=== PATIENT | female | born 1945 | race Caucasian/White ===

== ENCOUNTER → 2019-06-13 17:27 | Outpatient (CLI) | payer MEDICARE, OTHER, SELFPAY ==
--- NOTE | 2019-06-15 13:28 | DI.MRI.S_ITS ---
PROCEDURE: MR CERVICAL SPINE WO CON INDICATIONS: CERVICAL STENOSIS TECHNIQUE: Noncontrast sagittal T1 spin echo and T2 fast spin echo, sagittal STIR, foraminal oblique sagittal T2 fast spin echo, and axial gradient echo or T2 fast spin echo through the cervical spine. COMPARISON: None. FINDINGS: Image quality: Excellent. Alignment and Curvature: Straightening of the normal lordotic curvature. Bone Marrow: No fracture. Multilevel degenerative endplate sclerosis and spurring. Diffuse facet arthropathy. Mid to lower cervical spondylosis most pronounced at C5-T1. Spinal Cord: Visualized spinal cord has normal size and signal. No cerebellar tonsillar herniation. Paraspinous Soft Tissues: No paravertebral masses. Prevertebral soft tissues are normal in thickness. C2-C3: No central canal stenosis. Mild right foraminal narrowing with slight nerve root compression. Moderate left foraminal stenosis with nerve root compression. C3-C4: Minimal central canal narrowing. Severe right foraminal stenosis with nerve root compression. Moderate to severe left foraminal stenosis with nerve root compression C4-C5: No definite central canal stenosis. Moderate to severe right foraminal stenosis with nerve root compression. Moderate to severe left foraminal stenosis with nerve root compression C5-C6: Mild-moderate central canal narrowing. Mild bilateral foraminal stenosis. C6-C7: Left paracentral disc osteophyte complex and uncovertebral arthropathy with moderate left-sided central canal narrowing. Moderate right foraminal stenosis with nerve root compression. Moderate left foraminal stenosis with slight nerve root compression image /. C7-T1: Mild central canal narrowing due to uncovertebral arthropathy and right paracentral disc osteophyte complex. Moderate right foraminal narrowing with slight nerve root compression. Moderate left foraminal narrowing with nerve root compression. IMPRESSION: Multilevel mid-lower cervical spondylosis with facet arthropathy Diffuse bilateral foraminal stenoses as detailed above by spinal level Straightening of the normal lordotic curvature. Dictated by: Jesus Johnson M.D. on 06/17/2019 at 8:37 Approved by: Jesus Johnson M.D. on 06/17/2019 at 8:58
--- NOTE | 2019-06-15 13:28 | DI.MRI.S_ITS ---
PROCEDURE: MR HEAD/BRAIN WO CON INDICATIONS: CERVICAL STENOSIS TECHNIQUE: Non-contrast axial T1 spin echo, axial T2 fast spin echo, sagittal and axial FLAIR, coronal T2 fast spin echo, axial gradient echo, axial diffusion and ADC through the brain. COMPARISON: None. FINDINGS: Image quality: Excellent. CSF spaces: Ventricles appear symmetric in size and shape. Basal cisterns are patent. No extra-axial fluid collections. Brain: No intracranial bleeds or mass effects. There is mild cerebral volume loss for age. There are mild periventricular and deep white matter chronic small vessel ischemic changes. Brainstem appears normal. Diffusion-weighted images show no acute ischemic insults. No chronic ischemic insults. Normal intravascular flow voids are present. Skull and face: Calvarial bone marrow is normal in signal. Orbits are normal. Sinuses: Sinuses are clear. Trace fluid noted in the dependent portion of the right mastoid air cells. IMPRESSION: 1. No acute intracranial disease process. 2. No abnormal intracranial mass or mass effect. 3. No areas of acute or chronic infarction. 3. Mild, diffuse cerebral volume loss. 4. Mild periventricular and subcortical white matter chronic microvascular ischemic change. Dictated by: Layla Kirby MD, PhD on 06/17/2019 at 10:54 Approved by: Layla Kirby MD, PhD on 06/17/2019 at 12:14
== END ==
PROVIDERS: Family Provider Orthopaedic Surgery; PCP Family Medicine; Visit Provider Physical Medicine & Rehabilitation
DX: G72.9 Myopathy, unspecified (principal); M48.02 Spinal stenosis, cervical region; Z53.9 Procedure and treatment not carried out, unspecified reason

== ENCOUNTER → 2019-06-15 13:23 | Outpatient (CLI) | payer MEDICARE, OTHER, SELFPAY | PROVIDERS: Family Provider Orthopaedic Surgery; PCP Family Medicine; Visit Provider Physical Medicine & Rehabilitation | DX: M54.2 Cervicalgia (principal); R51 Headache; M47.812 Spondylosis without myelopathy or radiculopathy, cervical region; M48.02 Spinal stenosis, cervical region | CPT/HCPCS: 70551; 72141 ==

== ENCOUNTER → 2019-12-12 12:12 | Outpatient (CLI) | payer MEDICARE, OTHER, SELFPAY ==
--- NOTE | 2019-12-12 | DI.MRI.S_ITS ---
PROCEDURE: MR LUMBAR SPINE WO CON INDICATIONS: Radiculopathy, lumbar region TECHNIQUE: Noncontrast sagittal T1 spin echo and T2 fast echo, sagittal STIR, axial T1 and T2 fast spin echo through the lumbar spine. In cases with scoliosis, additional coronal T2 fast spin echo may be performed. COMPARISON: [facility], , SPINE 1 VIEW ANY LEVEL, 12/13/2011, 14:14. [facility], , MRI L-SPINE W/O CONTRAST, 01/05/2011, 11:11. FINDINGS: Image quality: Excellent. Alignment and Curvature: There is normal bony alignment. Bone Marrow: Marrow is of normal overall signal. No acute vertebral body compression fractures. Spinal Cord: Conus medullaris terminates at the L2 level. Visualized cord demonstrates normal signal and size. Paraspinous Soft Tissues: No paravertebral masses. T11-T12: No canal stenosis or foraminal stenosis. T12-L1: No canal stenosis or foraminal stenosis. L1-L2: Minimal disc bulge. No canal stenosis or foraminal stenosis. L2-L3: Mild disc bulge. Mild facet hypertrophy. Borderline at canal stenosis. Mild bilateral foraminal stenosis. L3-L4: Remote right hemilaminectomy. Moderate disc bulge. Left facet and ligament hypertrophy. Moderate bilateral foraminal narrowing with flattening deformity on the exiting bilateral L3 nerve roots. Far left lateral disc protrusion impinges on the left L3 nerve root far laterally. L4-L5: Remote right hemilaminectomy. Broad-based moderate left paracentral disc protrusion, with impingement on the left L5 nerve root in the left lateral recess. Left facet hypertrophy. Moderate bilateral foraminal narrowing with flattening deformity of the exiting bilateral L4 nerve roots. L5-S1: Remote right hemilaminectomy. Moderate diffuse disc bulge. Bilateral facet hypertrophy. No significant canal stenosis. Moderate bilateral foraminal narrowing with flattening deformity of the exiting bilateral L5 nerve roots. IMPRESSION: 1. Remote multilevel right hemilaminectomy. 2. At L3-L4, there is moderate bilateral foraminal narrowing. There is a far left lateral disc protrusion impinging on the left L3 nerve root far laterally. 3. At L4-L5, there is a broad-based moderate left paracentral disc protrusion which impinges on the left L5 nerve root in the left lateral recess. There is moderate bilateral foraminal narrowing. 4. At L5-S1, there is moderate bilateral foraminal narrowing. 5. Multilevel facet hypertrophy. Dictated by: Andrew Ware M.D. on 12/12/2019 at 17:08 Approved by: Andrew Ware M.D. on 12/12/2019 at 17:17
== END ==
PROVIDERS: Family Provider Orthopaedic Surgery; PCP Family Medicine; Referring Provider Orthopaedic Surgery; Visit Provider Orthopaedic Surgery
DX: M51.16 Intervertebral disc disorders with radiculopathy, lumbar region (principal); M51.17 Intervertebral disc disorders with radiculopathy, lumbosacral region; M48.061 Spinal stenosis, lumbar region without neurogenic claudication; M48.07 Spinal stenosis, lumbosacral region
CPT/HCPCS: 72148

== ENCOUNTER 2020-12-04 11:09 | Emergency (ER) | payer MEDICARE, SELFPAY ==
[2020-12-04] VITALS (12 sets, daily range): BP systolic 136–178; BP diastolic 58–73; PULSE 48–69; RESP 13–34; TEMP 36.3; O2SAT 96–99; BMI 23.8
--- NOTE | 2020-12-04 11:19 | DI.RAD.S_ITS ---
PROCEDURE: XR CHEST 1V INDICATIONS: chest pain TECHNIQUE: One view of the chest was acquired. COMPARISON: None. FINDINGS: Surgical changes and devices: None. Lungs and pleura: Lungs are clear. No pleural effusions or pneumothorax. Mediastinum: Mediastinal contours appear normal. Heart size is normal. Bones and chest wall: Bilateral shoulder joint degeneration. IMPRESSION: No acute disease. Dictated by: Jesus Johnson M.D. on 12/04/2020 at 11:48 Approved by: Jesus Johnson M.D. on 12/04/2020 at 12:03
--- NOTE | 2020-12-04 11:19 | DI.CT.S_ITS ---
PROCEDURE: CT HEAD/BRAIN WO CON INDICATIONS: multiple falls over past months, 4 in past 2 weeks. TECHNIQUE: Noncontrast 4.5 mm thick angled axial sections acquired from the foramen magnum to the vertex, with coronal and sagittal reformats. For radiation dose reduction, the following was used: automated exposure control, adjustment of mA and/or kV according to patient size. COMPARISON: None. FINDINGS: Image quality: Excellent. CSF spaces: Basal cisterns are patent. No extra-axial fluid collections. The ventricles are symmetric in size and shape. Brain: No intracranial bleeds or masses. There is cerebral volume loss for age, with resultant ventricular and sulcal prominence. There are periventricular and deep white matter chronic small vessel ischemic changes. There is intracranial internal carotid artery atherosclerosis. Skull and face: Calvarium and visualized facial bones appear intact, without suspicious lesions. Sinuses: Visualized sinuses and mastoids are clear. IMPRESSION: No acute intracranial process. Dictated by: Jesus Johnson M.D. on 12/04/2020 at 12:03 Approved by: Jesus Johnson M.D. on 12/04/2020 at 12:05
[2020-12-04 12:00] LABS: Add Manual Diff / Slide Review NO; Basophils Absolute Auto 100 /uL (0-100); Basophils Percent Auto 1.4 % (0-2); Eosinophils Absolute Auto 200 /uL (0-450); Hematocrit 37.8 % (36-46); Hemoglobin 12.6 g/dL (12.0-16.0); Lymphocytes Absolute Auto 2800 /uL (1100-4500); Mean Corpuscular HGB Conc 33.4 % (30-36); Mean Corpuscular Hemoglobin 31.1 PG (26-34); Mean Corpuscular Volume 93.2 fL (80-100); Monocytes Absolute Auto 800 /uL (0-900); Monocytes Percent Auto 7.8 % (3-14); Neutrophils Absolute Auto 6200 /uL (1500-7000); Neutrophils Percent Auto 60.8 % (50-75); Platelet Count 259 X10^3/uL (150-400); Red Blood Cell Count 4.05 X10^6/uL (4.0-5.2); Red Cell Distribution Width 13.2 % (11.6-14.8); White Blood Cell Count 10.2 X10^3/uL (4.5-11.0)
[2020-12-04 12:21] LABS: Alanine Aminotransferase 25 IU/L (<35); Albumin 4.3 g/dL (3.5-5.0); Albumin Globulin Ratio 1.3 (1.0-2.8); Alkaline Phosphatase 45 U/L (38-126); Aspartate Aminotransferase 76 IU/L (14-36); BUN Creatinine Ratio 17.1 (6-22); Bilirubin Total 0.7 mg/dL (0.2-1.3); Blood Urea Nitrogen 30 mg/dL (7-17); Calcium 9.5 mg/dL (8.4-10.2); Carbon Dioxide 24 mmol/L (22-32); Chloride 103 mmol/L (98-107); Creatine Kinase 47 U/L (30-135); Estimated Glomerular Filt Rate 28.3 mL/min (>60); Globulin 3.2 g/dL (1.7-4.1); Glucose 108 mg/dL (80-110); HEMOLYSIS 32 (0-50); Lipase 282 U/L (23-300); Magnesium 2.2 mg/dL (1.6-2.3); Potassium 4.5 mmol/L (3.4-5.1); Sodium 137 mmol/L (137-145); Total Protein 7.5 g/dL (6.3-8.2)
[2020-12-04 12:33] LABS: NT-proBNP (BNP-Adult 18+) 63 pg/mL (<450); Troponin I < 0.012 ng/mL (0.01-0.034)
[2020-12-04 12:52] LABS: TSH w/ Reflex to FT4 < 0.02 uIU/mL (0.47-4.68)
[2020-12-04 13:19] LABS: Free T4, Direct Thyroxine 1.96 ng/dL (0.78-2.19)
--- NOTE | 2020-12-04 14:03 | ED_ITS ---
HPI - General Adult General Chief complaint: Syncope Stated complaint: has been falling a lot, hit face Time Seen by Provider: 12/04/20 11:36 Source: patient Mode of arrival: Ambulatory Limitations: no limitations History of Present Illness HPI narrative: 75-year-old woman with a history of a stable angina, hyperte nsion, hyperlipidemia, anxiety and depression, diabetes and hypothyroidism presents with frequent falls worse since July of this year. She does note that symptoms have progressed even in the last 2 weeks. She fell last night and hit the left side of her face and lip but did not suffer additional injuries. She describes the falls as coming out of the blue, associated with her knees simply getting weak and then she falls down. She and her both note that as she has gotten a bit older and weaker that her balance and ability to compensate for any stumble or early fall has deteriorated significantly. When she begins to fall she is unable to compensate at all. She does have both a cane and walker but it does not seem that she is using these frequently. Related Data Home Medications Medication Instructions Recorded Confirmed fluoxetine 40 mg PO QDAY #0 12/13/11 12/04/20 omeprazole 20 mg PO BID@0600,2100 #0 12/13/11 12/04/20 acetaminophen 650 mg 650 mg PO TID tab 06/05/19 12/04/20 tablet,extended release atorvastatin 20 mg tablet 20 mg PO DAILY 06/05/19 12/04/20 fenofibrate 160 mg tablet 160 mg PO DAILY 06/05/19 12/04/20 insulin human U-100 NPH-regulr 40 unit SUBCUT BEDTIME ml 06/05/19 12/04/20 70-30 mix 100 unit/mL subcutaneous susp amlodipine 5 mg tablet 2.5 mg PO BID tab 08/14/19 12/04/20 biotin 10,000 mcg PO DAILY 12/04/20 12/04/20 bupropion HCl 150 mg PO DAILY 12/04/20 12/04/20 fexofenadine [Allergy Relief 180 mg PO DAILY 12/04/20 12/04/20 (fexofenadine)] glucosamine sulfate [Glucosamine] 1,500 mg PO DAILY 12/04/20 12/04/20 isosorbide dinitrate 10 mg PO BID 12/04/20 12/04/20 levothyroxine 50 mcg PO QAM 12/04/20 12/04/20 magnesium 15 tab PO DAILY 12/04/20 12/04/20 metoprolol tartrate 50 mg PO BID 12/04/20 12/04/20 Allergies Allergy/AdvReac Type Severity Reaction Status Date / Time oxycodone AdvReac Severe Hallucinati Verified 12/04/20 12:14 ng cinnamon AdvReac acid Verified 12/04/20 11:16 reflex, GI upset sulfamethoxazole AdvReac GI upset Verified 12/04/20 11:16 [From Bactrim] trimethoprim [From Bactrim] AdvReac GI upset Verified 12/04/20 11:16 mushrooms Allergy swollen Uncoded 08/14/19 11:25 and watery eyes raw onion AdvReac GI upset Uncoded 08/14/19 11:25 Review of Systems Review of Systems Narrative: Pertinent positive and negative findings as per HPI Remainder of review of systems is otherwise unremarkable for Constitutional: Fevers, chills, ENT: No sore throat, neck pain, ear pain CV: Chest pain, palpitations, Respiratory: Cough, wheeze, dyspnea GI: Nausea, vomiting, diarrhea, : Dysuria, hematuria, Patient History Medical History Cervical stenosis of spinal canal Depression with anxiety Diabetes Falls frequently Herniated nucleus pulposus with myelopathy, cervical Hyperlipidemia Hypertension Myopathy Stable angina Surgical History History of ankle surgery History of appendectomy History of back surgery History of hysterectomy Family History Father Diabetes mellitus Liver cancer Mother Diabetes mellitus COPD (chronic obstructive pulmonary disease) Asthma Family/Other Cancer Family/Other Heart problem Social History marital status: Smoking Status: Former smoker Smoking Status: Former smoker alcohol intake frequency: holidays/special occasions only Substance Use Type: does not use Exam Narrative Exam Narrative: General: frail but in no acute distress. Able to give a co mplete and coherent history. HEENT: Moist mucous membranes, normal sclera with reactive pupils, large ecchymosis around the left eye and left upper lip from 1 of her recent falls. Neck: No JVD, supple, No midline cervical tenderness Respiratory: Lungs are clear to auscultation, no wheezing no rales no rhonchi. Full and symmetrical air movement Cardiac: Regular rate and rhythm no murmurs no bruits Abdomen: Soft, nontender, good bowel tones, no flank pain Skin: Warm and dry, multiple small bruises in various stages of healing from her very thin skin and recent falls. Neurologic: Grossly neurologically intact with no obvious asymmetries or abnormalities Extremities: Old contusion to the medial aspect of her left hand for recent fall. Old bruise on her right flank from a more distant fall. Abrasion on the left anterior courtney from an old fall well perfused Psych: Cooperative, appropriate insight and affect Initial Vital Signs Initial Vital Signs: Vital Signs Temperature 97.3 F L 12/04/20 11:12 Pulse Rate 51 L 12/04/20 11:12 Respiratory Rate 14 12/04/20 11:12 Blood Pressure 178/73 H 12/04/20 11:12 Pulse Oximetry 99 12/04/20 11:12 Course Orders Ordered: ED Orders 12/04/20 11:19 CT head/brain wo con Stat XR chest 1V Stat EKG-12 Lead Stat 12/04/20 11:50 Complete Blood Count AUTO DIFF Stat Comprehensive Metabolic Panel Stat Free T4, Direct Thyroxine Stat Lipase Stat Magnesium Stat NT-proBNP (BNP-Adult 18+) Stat TSH w/ Reflex to FT4 Stat Troponin & CK Cardiac Panel Stat Vital Signs Vital signs: Vital Signs - 8 hr 12/04/20 11:12 12/04/20 11:21 12/04/20 11:30 Temperature 97.3 F L Pulse Rate 51 L 69 50 L Pulse Rate [Orthostatic Lying] Pulse Rate [Orthostatic Sitting] Pulse Rate [Orthostatic Standing] Respiratory Rate 14 20 22 Blood Pressure 178/73 H Blood Pressure [Orthostatic Lying] Blood Pressure [Orthostatic Sitting] Blood Pressure [Orthostatic Standing] Pulse Oximetry 99 12/04/20 11:48 12/04/20 11:50 12/04/20 11:52 Temperature Pulse Rate 51 L 51 L 50 L Pulse Rate [Orthostatic Lying] 53 L Pulse Rate [Orthostatic Sitting] 51 L Pulse Rate [Orthostatic Standing] 50 L Respiratory Rate 13 23 16 Blood Pressure 151/67 H 140/63 136/58 L Blood Pressure [Orthostatic Lying] 151/67 H Blood Pressure [Orthostatic Sitting] 140/63 Blood Pressure [Orthostatic Standing] 136/58 L Pulse Oximetry 98 97 97 12/04/20 12:00 12/04/20 12:30 12/04/20 13:00 Temperature Pulse Rate 50 L 48 L 49 L Pulse Rate [Orthostatic Lying] Pulse Rate [Orthostatic Sitting] Pulse Rate [Orthostatic Standing] Respiratory Rate 22 25 H 29 H Blood Pressure Blood Pressure [Orthostatic Lying] Blood Pressure [Orthostatic Sitting] Blood Pressure [Orthostatic Standing] Pulse Oximetry 99 98 97 12/04/20 13:30 12/04/20 13:57 12/04/20 14:00 Temperature Pulse Rate 48 L 50 L 48 L Pulse Rate [Orthostatic Lying] Pulse Rate [Orthostatic Sitting] Pulse Rate [Orthostatic Standing] Respiratory Rate 34 H 19 22 Blood Pressure 143/63 H 141/63 H Blood Pressure [Orthostatic Lying] Blood Pressure [Orthostatic Sitting] Blood Pressure [Orthostatic Standing] Pulse Oximetry 96 98 98 Medical Decision Making Medical Records Medical records reviewed: Yes I reviewed the patient's medical records. Lab Data Lab results reviewed: Yes I reviewed the patient's lab results. Result diagrams: 12/04/20 11:50 12/04/20 11:50 Labs: Lab Results 12/04/20 12/04/20 12/04/20 Range/Units 11:50 11:50 11:50 WBC 10.2 (4.5-11.0) X10^3/uL RBC 4.05 (4.0-5.2) X10^6/uL Hgb 12.6 (12.0-16.0) g/dL Hct 37.8 (36-46) % MCV 93.2 (80-100) fL MCH 31.1 (26-34) PG MCHC 33.4 (30-36) % RDW 13.2 (11.6-14.8) % Plt Count 259 (150-400) X10^3/uL Neut % (Auto) 60.8 (50-75) % Lymph % (Auto) 28.0 (25-40) % [place] % (Auto) 7.8 (3-14) % Eos % (Auto) 2.0 (2-4) % Baso % (Auto) 1.4 (0-2) % Neut # (Auto) 6200 (8422-5452) /uL Lymph # (Auto) 2800 (9003-2916) /uL [place] # (Auto) 800 (0-900) /uL Eos # (Auto) 200 (0-450) /uL Baso # (Auto) 100 (0-100) /uL Sodium 137 (137-145) mmol/L Potassium 4.5 (3.4-5.1) mmol/L Chloride 103 (98-107) mmol/L Carbon Dioxide 24 (22-32) mmol/L BUN 30 H (7-17) mg/dL Creatinine 1.75 H (0.52-1.04) mg/dL Estimated GFR 28.3 L (>60) mL/min BUN/Creatinine Ratio 17.1 (6-22) Glucose 108 (80-110) mg/dL Calcium 9.5 (8.4-10.2) mg/dL Magnesium 2.2 (1.6-2.3) mg/dL Total Bilirubin 0.7 (0.2-1.3) mg/dL AST 76 H (14-36) IU/L ALT 25 (<35) IU/L Alkaline Phosphatase 45 (38-126) U/L Total Creatine Kinase 47 (30-135) U/L CK-MB (CK-2) TNP CK-MB (CK-2) Rel Index TNP Troponin I < 0.012 (0.01-0.034) ng/mL NT-Pro-B Natriuret Pep 63 (<450) pg/mL Total Protein 7.5 (6.3-8.2) g/dL Albumin 4.3 (3.5-5.0) g/dL Globulin 3.2 (1.7-4.1) g/dL Albumin/Globulin Ratio 1.3 (1.0-2.8) Lipase 282 (23-300) U/L TSH < 0.02 L (0.47-4.68) uIU/mL Free T4 1.96 (0.78-2.19) ng/dL Imaging Data Chest x-ray: Radiologist's Impression: FINDINGS: Surgical changes and devices: None. Lungs and pleura: Lungs are clear. No pleural effusions or pneumothorax. Mediastinum: Mediastinal contours appear normal. Heart size is normal. Bones and chest wall: Bilateral shoulder joint degeneration. IMPRESSION: No acute disease. Dictated by: Jesus Johnson M.D. on 12/04/2020 at 11:48 CT scan - head: Radiologist's Impression: FINDINGS: Image quality: Excellent. CSF spaces: Basal cisterns are patent. No extra-axial fluid collections. The ventricles are symmetric in size and shape. Brain: No intracranial bleeds or masses. There is cerebral volume loss for age, with resultant ventricular and sulcal prominence. There are periventricular and deep white matter chronic small vessel ischemic changes. There is intracranial internal carotid artery atherosclerosis. Skull and face: Calvarium and visualized facial bones appear intact, without suspicious lesions. Sinuses: Visualized sinuses and mastoids are clear. IMPRESSION: No acute intracranial process. Dictated by: Jesus Johnson M.D. on 12/04/2020 at 12:03 ECG Data Attestation: I personally reviewed and interpreted this ECG as follows: Interpretation: sinus Narinder at a rate of 51 normal intervals, normal axis no acute ischemic changes MDM Narrative Medical decision making narrative: 75-year-old woman with increasing falls, gai t instability and overall weakness. I suspect that this is all multifactorial and polypharmacy may also be contributing. She does not have any evidence of acute infection, no intracranial bleeding or masses. She does have relative bradycardia and that may also be contributing. Her asks about polypharmacy but she is unwilling to consider decreasing some of her medications including her bupropion, fluoxetine, or omeprazole. She is willing to consider decreasing some of her cardiac medications. Have asked her to cut her metoprolol dose from 50 b.i.d. to 25 b.i.d. keep track of blood pressures and heart rate and see if this makes a difference. I also strongly recommended she consider physical therapy consultation to help improve overall balance and strength to try and prevent future falls. She seems reluctant to even consider this is last time she tried physical therapy for a different issue she felt that it made her worse. Given the change to metoprolol I encouraged her to keep her appointment with the nurse practitioner on Monday as well as her schedule appointment with her physician on December 23. Symptoms worsen I encouraged her to return to the emergency department. She is safe for home discharge at this time Discharge Plan Departure Patient Disposition: Home Clinical Impression: Bradycardia, Balance problem, Falls frequently Instructions: Exercises to Help Prevent Falls, DI for Bradycardia Activity Restrictions/Additional Instructions: thank you for coming in today your heart rate has been a bit slow and that may be contributing to the in creased number of falls you are having. You clearly are having increasing balance difficulties and may well benefit from a structured physical therapy program to help improve balance and strength overall. please discuss this with your primary care doctor I am going to ask you to change your metoprolol dose. Today, do not take your evening dose of metoprolol tomorrow, please cut the metoprolol in half and take half a pill in the morning and half a pill at night. This is decreasing your dose from 50 mg twice a day to 25 mg twice a day I would encourage you to find a smaller blood pressure cuff so that you are getting accurate readings. With the change in the metoprolol dosing, please check you blood once a day, middle of the day and keep track of your heart rate at the same time. I would encourage you to keep your appointment with your doctor next Monday to make sure that this decrease in metoprolol is going well. If you have worsening symptoms, please feel free to return to the ER Prescriptions: No Action omeprazole 20 MG capsule,delayed release(DR/EC) 20 mg PO BID@0600,2100 Qty: 0 RF: 0 fluoxetine 40 MG capsule 40 mg PO QDAY Qty: 0 RF: 0 isosorbide dinitrate 10 mg tablet 10 mg PO BID RF: 0 fexofenadine [Allergy Relief (fexofenadine)] 180 mg Tablet 180 mg PO DAILY RF: 0 levothyroxine 50 mcg tablet 50 mcg PO QAM RF: 0 biotin 10,000 mcg Capsule 10,000 mcg PO DAILY RF: 0 metoprolol tartrate 50 mg tablet 50 mg PO BID RF: 0 glucosamine sulfate [Glucosamine] 750 mg Tablet 1,500 mg PO DAILY RF: 0 bupropion HCl 150 mg tablet extended release 24 hr 150 mg PO DAILY RF: 0 magnesium Tablet 15 tab PO DAILY RF: 0 fenofibrate 160 mg tablet 160 mg PO DAILY RF: 0 atorvastatin 20 mg tablet 20 mg PO DAILY RF: 0 acetaminophen [Tylenol 8 Hour] 650 mg tablet extended release 650 mg PO TID RF: 0 Humulin 70/30 U-100 Insulin 100 unit/mL (70-30) suspension 40 unit SUBCUT BEDTIME RF: 0 amlodipine 5 mg tablet 2.5 mg PO BID RF: 0 Referrals: Ja Cervantes DO [Primary Care Provider] -
--- NOTE | 2020-12-04 14:44 | PC.NURSE ---
Pt ambulated to and from bathroom independently, stand by assist provided for safety.
== END 2020-12-04 14:40 | disposition home or self-care (01) ==
PROVIDERS: Emergency Provider Emergency Medicine; Family Provider Orthopaedic Surgery; PCP Family Medicine
DX: R00.1 Bradycardia, unspecified (principal); R26.89 Other abnormalities of gait and mobility; R29.6 Repeated falls; R07.9 Chest pain, unspecified
CPT/HCPCS: 36415; 70450; 71045; 80053; 82550; 83690; 83735; 83880; 84439; 84443; 84484; 85025; 93005; 93010; 99284

== ENCOUNTER → 2021-11-09 11:38 | Outpatient (CLI) | payer MEDICARE, SELFPAY ==
--- NOTE | 2021-11-09 | DI.US.S_ITS ---
PROCEDURE: US CAROTID DOPPLER BI INDICATIONS: Abnormal result of other cardiovascular function s TECHNIQUE: Color and pulse Doppler interrogation was performed of both carotid systems, with image documentation and velocity measurements. COMPARISON: None. FINDINGS: Stenosis calculations are based on SRU (Society of Radi[employer] in Ultras[employer]) criteria. Right side: Brachial blood pressure: 197/76 mm Hg. Common carotid artery peak systolic velocity: 72 cm/sec. Internal carotid artery peak systolic velocity: 81 cm/sec. Internal carotid artery end diastolic velocity: 17 cm/sec. External carotid artery peak systolic velocity: 116 cm/sec. ICA/CCA peak systolic ratio: 1.1. Scott scale imaging description: Mild atherosclerotic plaques are seen in right carotid bulbs and origin of right internal carotid artery. Percent internal carotid artery stenosis: Less than 50 percent. Vertebral artery: Flow direction is antegrade. Left side: Brachial blood pressure: 191/73 mm Hg. Common carotid artery peak systolic velocity: 78 cm/sec. Internal carotid artery peak systolic velocity: 110 cm/sec. Internal carotid artery end diastolic velocity: 24 cm/sec. External carotid artery peak systolic velocity: 89 cm/sec. ICA/CCA peak systolic ratio: 1.4. Scott scale imaging description: Mild atherosclerotic plaques are seen in left carotid bulb and origin of left internal carotid artery Percent internal carotid artery stenosis: Less than 50 percent. Vertebral artery: Flow direction is antegrade. IMPRESSION: Finding is consistent with less than 50 percent stenosis in bilateral proximal internal carotid arteries. Dictated by: Blaine Nicolas M.D. on 11/09/2021 at 13:23 Approved by: Blaine Nicolas M.D. on 11/09/2021 at 13:24
== END ==
PROVIDERS: Family Provider Orthopaedic Surgery; PCP Nurse Practitioner Family; Referring Provider Internal Medicine Cardiovascular Disease; Visit Provider Internal Medicine Cardiovascular Disease
DX: N18.4 Chronic kidney disease, stage 4 (severe) (principal); R94.39 Abnormal result of other cardiovascular function study; E78.1 Pure hyperglyceridemia
CPT/HCPCS: 93880

== ENCOUNTER 2022-01-25 13:04 | Emergency (ER) | payer MEDICARE, SELFPAY ==
[2022-01-25 13:11] VITALS: BP 189/79; PULSE 60; RESP 16; O2SAT 100; BMI 20.8
[2022-01-25 13:13] VITALS: BMI 20.8
--- NOTE | 2022-01-25 13:17 | DI.CT.S_ITS ---
PROCEDURE: CT HEAD/BRAIN WO CON INDICATIONS: fall on blood thinners. TECHNIQUE: Noncontrast 4.5 mm thick angled axial sections acquired from the foramen magnum to the vertex, with coronal and sagittal reformats. For radiation dose reduction, the following was used: automated exposure control, adjustment of mA and/or kV according to patient size. COMPARISON: [facility], CT, CT HEAD/BRAIN WO CON, 12/04/2020, 11:25. FINDINGS: Image quality: Degraded by patient motion artifact. CSF spaces: Basal cisterns are patent. No extra-axial fluid collections. The ventricles are symmetric in size and shape. Brain: No intracranial bleeds or masses. There is cerebral volume loss for age, with resultant ventricular and sulcal prominence. There are periventricular and deep white matter chronic small vessel ischemic changes. There is intracranial internal carotid artery and vertebral artery atherosclerosis. Skull and face: Calvarium and visualized facial bones appear intact, without suspicious lesions. Sinuses: Visualized sinuses and mastoids are clear. IMPRESSION: No acute intracranial disease process. Dictated by: Layla Kirby MD, PhD on 01/25/2022 at 12:40 Approved by: Layla Kirby MD, PhD on 01/25/2022 at 12:41
--- NOTE | 2022-01-25 13:30 | DI.CT.S_ITS ---
PROCEDURE: CT CERVICAL SPINE WO CON INDICATIONS: FALL, NECK PAIN TECHNIQUE: Noncontrast 3 mm thick sections acquired from the skull base to the T4 level. Sagittal and coronal reformats were then constructed. For radiation dose reduction, the following was used: automated exposure control, adjustment of mA and/or kV according to patient size. COMPARISON: None. FINDINGS: Image quality: Excellent. Bones: No fractures or dislocations. Visualized superior ribs are intact. Spine degenerative disc disease and facet arthropathy. Soft tissues: Prevertebral soft tissues are normal in thickness. No paravertebral hematomas. No apical pneumothoraces. IMPRESSION: No fracture. No acute osseous lesion. If symptoms and/or clinical suspicion for pathology persists, evaluation with MRI should be considered for further assessment. Dictated by: Layla Kirby MD, PhD on 01/25/2022 at 12:42 Approved by: Layla Kirby MD, PhD on 01/25/2022 at 12:44
--- NOTE | 2022-01-25 14:58 | ED_ITS ---
HPI - Fall <Irvin StarksMILADIS - Last Filed: 01/25/22 15:19> General Chief Complaint: Fall Stated Complaint: Fell last night- hit head- on thinners Time Seen by Provider: 01/25/22 14:42 Source: patient Mode of arrival: Ambulatory History of Present Illness HPI Narrative: 76-year-old female, former smoker, presents to emergency department after falling in her bathtub 2 days ago. Patient was seen by a [facility] and is scheduled to have an x-ray of her left forearm tomorrow morning. Patient's daughter, who is a healthcare professional, wanted her to come in to get a head CT due to her age and mechanism of injury. Patient is in good spirits, denies any headache, blurry vision or mental status changes. Patient is here with her . Related Data Home Medications Medication Instructions Recorded Confirmed fluoxetine 40 mg capsule 40 mg PO QDAY ##0 12/13/11 12/04/20 omeprazole 20 mg capsule,delayed 20 mg PO BID@0600,2100 ##0 12/13/11 12/04/20 release acetaminophen 650 mg 650 mg PO TID 06/05/19 12/04/20 tablet,extended release (Tylenol 8 Hour) atorvastatin 20 mg tablet 20 mg PO DAILY 06/05/19 12/04/20 fenofibrate 160 mg tablet 160 mg PO DAILY 06/05/19 12/04/20 insulin human U-100 NPH-regulr 40 unit SUBCUT BEDTIME 06/05/19 12/04/20 70-30 mix 100 unit/mL subcutaneous susp (Humulin 70/30 U-100 Insulin) amlodipine 5 mg tablet 2.5 mg PO BID 08/14/19 12/04/20 biotin 10,000 mcg capsule 10,000 mcg PO DAILY 12/04/20 12/04/20 bupropion HCl 150 mg 24 hr tablet, 150 mg PO DAILY 12/04/20 12/04/20 extended release fexofenadine 180 mg tablet 180 mg PO DAILY 12/04/20 12/04/20 (Allergy Relief (fexofenadine)) glucosamine sulfate 750 mg tablet 1,500 mg PO DAILY 12/04/20 12/04/20 isosorbide dinitrate 10 mg tablet 10 mg PO BID 12/04/20 12/04/20 levothyroxine 50 mcg tablet 50 mcg PO QAM 12/04/20 12/04/20 magnesium 15 tab PO DAILY 12/04/20 12/04/20 metoprolol tartrate 50 mg tablet 50 mg PO BID 12/04/20 12/04/20 Allergies Allergy/AdvReac Type Severity Reaction Status Date / Time oxycodone AdvReac Severe Hallucinati Verified 01/25/22 13:11 ng cinnamon AdvReac acid Verified 01/25/22 13:11 reflex, GI upset sulfamethoxazole AdvReac GI upset Verified 01/25/22 13:11 [From Bactrim] trimethoprim [From Bactrim] AdvReac GI upset Verified 01/25/22 13:11 mushrooms Allergy swollen Uncoded 08/14/19 11:25 and watery eyes raw onion AdvReac GI upset Uncoded 08/14/19 11:25 Review of Systems <MILADIS Garcia - Last Filed: 01/25/22 15:19> Review of Systems Narrative: Narrative: GENERAL: Denies chills, fatigue, fever, sweats. See HPI HEENT: Denies sinus pain, ear pain, sore throat, difficulty swallowing, dizziness. RESPIRATORY: Denies dyspnea, cough, wheezing, sputum. CARDIOVASCULAR: Denies chest pain, palpitations, edema. GASTROINTESTINAL: Denies nausea, vomiting, abdominal pain, diarrhea. Endorses chronic constipation. : Denies dysuria, frequency, incontinence, hematuria, urinary retention, flank pain. MSK: Endorses left forearm pain. Patient is in a left-sided sling. SKIN: Denies rash, skin lesions, or pruritis. NEUROLOGIC: Denies weakness, dizziness, headache, numbness, confusion. PSYCHIATRIC: No concerning psychosocial issues. Patient History <MILADIS Garcia - Last Filed: 01/25/22 15:19> Medical History Cervical stenosis of spinal canal Depression with anxiety Diabetes Falls frequently Herniated nucleus pulposus with myelopathy, cervical Hyperlipidemia Hypertension Myopathy Stable angina Surgical History History of ankle surgery History of appendectomy History of back surgery History of hysterectomy Family History Father Diabetes mellitus Liver cancer Mother Diabetes mellitus COPD (chronic obstructive pulmonary disease) Asthma Family/Other Cancer Family/Other Heart problem Social History marital status: Smoking Status: Former smoker Smoking Status: Former smoker alcohol intake frequency: holidays/special occasions only Substance Use Type: does not use Exam <MILADIS Garcia - Last Filed: 01/25/22 15:19> Narrative Exam Narrative: Exam Narrative: GENERAL: This is a well-nourished, well-developed patient, in no acute distress HEAD: Atraumatic. Normocephalic. No Martinez signs EYES: Pupils equal round and reactive. Extraocular motions intact. No scleral icterus, injection or drainage. No raccoon eyes. ENT: Nose without bleeding, purulent drainage. Throat without erythema, tonsillar hypertrophy or exudate. Airway patent. NECK: Trachea midline. No JVD or lymphadenopathy. Nontender. No C-spine tenderness CARDIOVASCULAR: Regular rate and rhythm without murmurs, peripheral pulses intact, cap refill <2 sec. RESPIRATORY: Breath sounds equal and clear bilaterally. No wheezes, rales, or rhonchi. No cough. No increased respiratory effort. No accessory muscle use. GASTROINTESTINAL: Abdomen soft, mild left lower quadrant tenderness that she attributes to her chronic constipation, nondistended without guarding or rebound. No suprapubic pain. MSK: Moves all extremities. Normal range of motion, no clubbing or edema. Neurovascularly intact. NEURO: A&O x 3. SKIN: Warm, dry, no rashes or lesions noted. Initial Vital Signs Initial Vital Signs: Vital Signs Pulse Rate 60 01/25/22 13:11 Respiratory Rate 16 01/25/22 13:11 Blood Pressure 189/79 H 01/25/22 13:11 Pulse Oximetry 100 01/25/22 13:11 Oxygen Delivery Method 01/25/22 13:11 Oxygen Flow Rate 97.6 01/25/22 13:11 Reviewed <Sidra Dyer DO - Last Filed: 01/31/22 03:59> Initial Vital Signs Initial Vital Signs: Vital Signs Pulse Rate 60 01/25/22 13:11 Respiratory Rate 16 01/25/22 13:11 Blood Pressure 189/79 H 01/25/22 13:11 Pulse Oximetry 100 01/25/22 13:11 Oxygen Delivery Method 01/25/22 13:11 Oxygen Flow Rate 97.6 01/25/22 13:11 Course <MILADIS Garcia - Last Filed: 01/25/22 15:19> Orders Ordered: ED Orders 01/25/22 13:17 CT head/brain wo con Stat 01/25/22 13:30 CT cervical spine wo con Stat Vital Signs Vital signs: Vital Signs - 8 hr 01/25/22 13:11 Pulse Rate 60 Respiratory Rate 16 Blood Pressure 189/79 H Pulse Oximetry 100 Oxygen Delivery Method Room Air Oxygen Flow Rate 97.6 <Sidra Dyer DO - Last Filed: 01/31/22 03:59> Orders Ordered: ED Orders 01/25/22 13:17 CT head/brain wo con Stat 01/25/22 13:30 CT cervical spine wo con Stat Vital Signs Vital signs: Vital Signs - 8 hr 01/25/22 13:11 Pulse Rate 60 Respiratory Rate 16 Blood Pressure 189/79 H Pulse Oximetry 100 Oxygen Delivery Method Room Air Oxygen Flow Rate 97.6 MDM - Fall <MILADIS Garcia - Last Filed: 01/25/22 15:19> Differential Diagnosis Differential diagnosis: Likely other (Fall injury, left forearm pain) Imaging Data CT scan - head: Radiologist's Impression: [place] [address] CT Scan Report Signed Patient: Imelda Weiss MR#: [id number] : 1945 Acct:[id number] Age/Sex: 76 / F Date of Service: 01/25/22 Loc: ED Accession Number: [id number] ?? Procedure: CT head/brain wo con Ordering Provider: Sidra Dyer D.O. PROCEDURE:? CT HEAD/BRAIN WO CON ? INDICATIONS:? fall on blood thinners. ? TECHNIQUE:? Noncontrast 4.5 mm thick angled axial sections acquired from the foramen magnum to the vertex, with coronal and sagittal reformats.? For radiation dose reduction, the following was used:? automated exposure control, adjustment of mA and/or kV according to patient size.? ? COMPARISON:? [facility], CT, CT HEAD/BRAIN WO CON, 12/04/2020, 11:25. ? FINDINGS:? Image quality:? Degraded by patient motion artifact. ? CSF spaces:? Basal cisterns are patent.? No extra-axial fluid collections.? The ventricles are symmetric in size and shape.? ? Brain:? No intracranial bleeds or masses.? There is cerebral volume loss for age, with resultant ventricular and sulcal prominence.? There are periventricular and deep white matter chronic small vessel ischemic changes.? There is intracranial internal carotid artery and vertebral artery atherosclerosis.? ? Skull and face:? Calvarium and visualized facial bones appear intact, without suspicious lesions.? ? Sinuses:? Visualized sinuses and mastoids are clear.? ? IMPRESSION:? No acute intracranial disease process. ? ? Dictated by: Layla Kirby MD, PhD on 01/25/2022 at 12:40 ? ? Approved by: Layla Kirby MD, PhD on 01/25/2022 at 12:41 ? CT - cervical spine: Radiologist's Impression: [address] [address] [address] Scan Report Signed Patient: Imelda Weiss MR#: [id number] : 1945 Acct:[id number] Age/Sex: 76 / F Date of Service: 01/25/22 Loc: ED Accession Number: [id number] ?? Procedure: CT cervical spine wo con Ordering Provider: Sidra Dyer D.O. PROCEDURE:? CT CERVICAL SPINE WO CON ? INDICATIONS:? FALL, NECK PAIN ? TECHNIQUE:? Noncontrast 3 mm thick sections acquired from the skull base to the T4 level.? Sagittal and coronal reformats were then constructed.? For radiation dose reduction, the following was used:? automated exposure control, adjustment of mA and/or kV according to patient size.? ? COMPARISON:? None. ? FINDINGS:? Image quality:? Excellent.? ? Bones:? No fractures or dislocations.? Visualized superior ribs are intact. Spine degenerative disc disease and facet arthropathy.? ? Soft tissues:? Prevertebral soft tissues are normal in thickness.? No paravertebral hematomas.? No apical pneumothoraces.? ? ? IMPRESSION:? No fracture. No acute osseous lesion. If symptoms and/or clinical suspicion for pathology persists, evaluation with MRI should be considered for further assessment. ? ? ? Dictated by: Layla Kirby MD, PhD on 01/25/2022 at 12:42 ? ? Approved by: Layla Kirby MD, PhD on 01/25/2022 at 12:44 ? MDM Narrative Medical decision making narrative: 76-year-old female that presents emergency department after a ground level fall in her bathtub 2 days ago. Patient's only desire was to have a head CT for which her head and neck CT were both negative. Patient has a scheduled appointm ent to have a left forearm x-ray tomorrow at [facility] and declined an offer to have the x-ray here in the ED. Patient reports chronic constipation for which she will contact her family doctor over. Discussed plan of care and return precautions with patient, who was agreeable with course of action. Discharge Plan Departure Patient Disposition: Home Clinical Impression: Fall with injury Instructions: How to Prevent Falls Activity Restrictions/Additional Instructions: *You have been diagnosed with a fall injury. Your head and neck CT were both negative. You have stated that your plan of care is to get a x-ray of your left forearm tomorrow, for which I highly recommend you follow through with. We have discussed your chronic constipation and I recommend you continue with your stool softeners every day until you are having a normal bowel movement. Please follow-up with your family doctor to discuss further options and follow-up for this. If at any point you develop worsening symptoms such as intolerable pain, chest pain, difficulty breathing, etc. please do not hesitate to come into the emergency department. *What to do: *Please continue to take your regular medications as directed. [ ] New medication prescriptions sent to your pharmacy: [ ] [ ] New medication written as a paper prescription [ x] No new medications given *Please follow up with your primary care provider in 2-3 days, call for an appointment. Let them know you were seen in the Emergency Department and that we ask that you be seen in follow up. We will electronically transmit a record of today's note if your PCP is in our system *If you do not have a primary care provider please contact the [facility] Resource line at [phone]. They will ask some questions about your medical history and help get you set up with a doctor in the community. ? Return to ER if you should have any new, worsening or concerning symptoms, such as worsening pain, severe headache, confusion, chest pain, difficulty breathing, fever greater than 101 F, shaking chills, persistent vomiting to the point that you cannot drink fluids, or other new or worsening symptoms. Prescriptions: No Action omeprazole 20 MG capsule,delayed release(DR/EC) 20 mg PO BID@0600,2100 Qty: 0 fluoxetine 40 MG capsule 40 mg PO QDAY Qty: 0 isosorbide dinitrate 10 mg tablet 10 mg PO BID fexofenadine [Allergy Relief (fexofenadine)] 180 mg Tablet 180 mg PO DAILY levothyroxine 50 mcg tablet 50 mcg PO QAM biotin 10,000 mcg Capsule 10,000 mcg PO DAILY metoprolol tartrate 50 mg tablet 50 mg PO BID glucosamine sulfate [Glucosamine] 750 mg Tablet 1,500 mg PO DAILY Rx Instructions: in NEM supplament bupropion HCl 150 mg tablet extended release 24 hr 150 mg PO DAILY magnesium Tablet 15 tab PO DAILY Rx Instructions: as part of Release dietary supplament fenofibrate 160 mg tablet 160 mg PO DAILY atorvastatin 20 mg tablet 20 mg PO DAILY acetaminophen [Tylenol 8 Hour] 650 mg tablet extended release 650 mg PO TID Humulin 70/30 U-100 Insulin 100 unit/mL (70-30) suspension 40 unit SUBCUT BEDTIME amlodipine 5 mg tablet 2.5 mg PO BID Referrals: Yanet Ignacio ARNP [Primary Care Provider] - Visit Report Forms: Patient Portal/API <Sidra Dyer DO - Last Filed: 01/31/22 03:59> Cosign ED Attending Kendrick Attestation: I was immediately available in the department for consultation. Documentation has been reviewed.
[2022-01-25 15:35] VITALS: BP 180/75; PULSE 58; O2SAT 97
== END 2022-01-25 15:43 | disposition home or self-care (01) ==
PROVIDERS: Emergency Provider Registered Nurse; Family Provider Orthopaedic Surgery; PCP Nurse Practitioner Family
DX: S09.90XA Unspecified injury of head, initial encounter (principal); M54.2 Cervicalgia; W18.2XXA Fall in (into) shower or empty bathtub, initial encounter; Z79.01 Long term (current) use of anticoagulants
CPT/HCPCS: 70450; 72125; 99283

== ENCOUNTER 2022-05-22 10:58 | Inpatient (IN) | payer MEDICARE, SELFPAY ==
[2022-05-22] VITALS (12 sets, daily range): BP systolic 140–218; BP diastolic 70–89; PULSE 67–87; RESP 11–40; TEMP 36.2–36.9; O2SAT 97–100; BMI 18.6; BMI 18.3
[2022-05-22 14:19] LABS: Bacteria Urine Few (2-10); Culture Indicated Urine Specimen Cultured; Ictotest Urine Negative (Negative); RBC Urine >100/HPF (0-5/HPF); Squamous Epithelial Cell Urine 0-1 /HPF (0-5/HPF); Transitional Epi Cells Urine 0-1/HPF (0-5/HPF); WBC Urine 30-100/HPF (0-5/HPF)
--- NOTE | 2022-05-22 15:38 | DI.CT.S_ITS ---
PROCEDURE: CT ABDOMEN PELVIS WO CON INDICATIONS: hx nephrolithiasis, acute cystitis, pelvic pain TECHNIQUE: Axial sections were acquired from the lung bases to the pubic symphysis. Coronal and sagittal reformats were performed. For radiation dose reduction, the following was used: automated exposure control, adjustment of mA and/or kV according to patient size. COMPARISON: None. FINDINGS: Image quality: Excellent. Lung bases: Unremarkable. Heart: No significant findings. At least moderate coronary artery calcification can be seen. URINARY: Right Kidney: There is severe right-sided hydronephrosis. No definite kidney stones are seen. Apparent arterial calcification can be seen Right Ureter: There is severe right-sided hydroureter. A distal stone is not seen. Left Kidney: No sandy stones or hydronephrosis. Apparent arterial calcification can be seen. There is a mildly hyperdense cyst exophytic from the lateral left kidney measuring up to 3 cm. Left Ureter: No hydroureter. Bladder: Focal bladder wall thickening is seen on the right, including at the ureteral orifice. ABDOMEN: Liver: The liver demonstrates a nodular appearance. To the limits of this noncontrast study, no focal liver lesion is seen. Gallbladder: The gallbladder demonstrates layering gallstones. Biliary ducts: Unremarkable. Pancreas: Unremarkable. Spleen: Unremarkable. Adrenal Glands: Unremarkable. Stomach and Bowel: Stomach, small bowel loops, and colon are unremarkable. Peritoneum: [id number] simple ascites is seen, measuring 12 Hounsfield units. No free air. Ventral Wall: No hernia. Abdominal Nodes: No enlarged retroperitoneal or mesenteric lymph nodes. Vessels: Aorta and inferior vena cava are normal in size. Atherosclerotic calcification is noted. PELVIS: Pelvic Organs: This patient is status post hysterectomy. No adnexal masses are seen. Pelvic Nodes: Unremarkable. Miscellaneous: No inguinal hernias are seen. Bones: Extensive lumbar degenerative changes are seen. Lower lumbar spine postoperative change can be seen, with right-sided laminectomies. An L3 vertebral body hemangioma can be seen. No frankly suspicious bony lesions are seen. Mild levoconvex scoliotic curvature is noted. IMPRESSION: These imaging findings are highly concerning for right-sided bladder neoplasm, with associated obstruction of the right renal collecting system. There is severe right-sided hydroureter and hydronephrosis. - Urgent urology referral is recommended. Nodular appearing liver. Please consider cirrhosis. [id number] simple ascites is seen. Additional findings: At least moderate coronary artery calcification Layering gallstones Apparent hyperdense cyst on the left laterally Hysterectomy L3 vertebral body hemangioma Mild levoconvex scoliotic curvature Lower lumbar spine right-sided laminectomies Lower lumbar spine degenerative change Note: Findings and recommendations discussed by telephone with Lianna Cabello at 3:50 p.m. [place] time on May 22, 2022. Dictated by: Cem Snell M.D. on 05/22/2022 at 15:44 Approved by: Cem nSell M.D. on 05/22/2022 at 15:52
--- NOTE | 2022-05-22 16:38 | ED_ITS ---
HPI - Female Genitourinary <Lianna Cabello [facility] - Last Filed: 05/22/22 18:25> General Chief complaint: Urogenital-Female Stated complaint: blood in urine Time Seen by Provider: 05/22/22 14:58 Source: patient Mode of arrival: Family Vehicle History of Present Illness HPI Narrative: This is a 76-year-old female presents to the emergency department complaining of hematuria, dysuria, urinary frequency and urgency and states that she is had many years of this in the past. She has a history of total hysterectomy many years ago, was recently taken off of her insulin, amlodipine, and metoprolol. She is not anticoagulated but has been in the past as she has a history of atrial fibrillation. Today she is normal sinus rhythm patient denies any recent fever, chills. She states that when she was in [facility] she had a pelvic ultrasound and was told she did not have any problems, she thinks that she has vaginal bleeding but states that she does not have any organs there. She states that she has a history of kidney stones, does not have a urologist, is pending a new patient appointment with Dr. Larson and is a previous patient of Dr. Cisneros. She states that for many months she is had low energy, she denies any fevers, chills, back pain, endorses some mild flank pain but states that she has pain everywhere at baseline. She has a history of diabetes but states that she no longer needs insulin due to hypoglycemic episode she was having. Her experimental physicist is Dr. Vogt, states that she saw him recently and she does not have any new problems. She complains of abdominal distention, bloating and feeling generalized pain, without focal tenderness. He denies any vaginal discharge otherwise, states that her urine has a large amount of blood in it. Related Data Home Medications Medication Instructions Recorded Confirmed No Known Home Medications 05/22/22 05/22/22 Allergies Allergy/AdvReac Type Severity Reaction Status Date / Time oxycodone AdvReac Severe Hallucinati Verified 05/22/22 11:20 ng cinnamon AdvReac acid Verified 05/22/22 11:20 reflex, GI upset sulfamethoxazole AdvReac GI upset Verified 05/22/22 11:20 [From Bactrim] trimethoprim [From Bactrim] AdvReac GI upset Verified 05/22/22 11:20 mushrooms Allergy swollen Uncoded 05/22/22 11:20 and watery eyes raw onion AdvReac GI upset Uncoded 05/22/22 11:20 Review of Systems <MILADIS Cooley - Last Filed: 05/22/22 18:25> Review of Systems ROS Unobtainable: All systems reviewed & are unremarkable except as noted in HPI and below Patient History <MILADIS Cooley - Last Filed: 05/22/22 18:25> Medical History Cervical stenosis of spinal canal Depression with anxiety Diabetes Falls frequently Herniated nucleus pulposus with myelopathy, cervical Hyperlipidemia Hypertension Myopathy Stable angina Surgical History History of ankle surgery History of appendectomy History of back surgery History of hysterectomy Family History Father Diabetes mellitus Liver cancer Mother Diabetes mellitus COPD (chronic obstructive pulmonary disease) Asthma Family/Other Cancer Family/Other Heart problem tobacco type: cigarettes alcohol intake frequency: holidays/special occasions only Substance Use Type: does not use Exam <MILADIS Cooley - Last Filed: 05/22/22 18:25> Narrative Exam Narrative: Reviewed vitals signs and nursing notes. General: cooperative, comfortable, in no acute distress, well groomed HEENT: symmetrical facial expressions, moist mucous membranes Cardiovascular: regular rate and rhythm, no peripheral edema, warm extremities Respiratory: normal effort, able to speak in complete sentences, without wheezing, stridor, or abnormal breath sounds. No retractions or tachypnea. GI: abdomen soft, suprapubic tenderness to palpation, without abdominal tenderness otherwise, nondistended, without masses, right-sided CVA tenderness MSK: moves all extremities, neurovascularly intact, no weakness, normal tone Skin: brisk capillary refill, without pallor or erythema Neuro: normal speech and cognition, A&O x3, ambulatory, clear speech Psych: mental status is grossly normal, congruent mood, normal affect, pleasant and cooperative Initial Vital Signs Initial Vital Signs: Vital Signs Temperature 98.4 F 05/22/22 11:12 Pulse Rate 86 05/22/22 11:12 Respiratory Rate 20 05/22/22 11:12 Blood Pressure 184/70 H 05/22/22 11:12 Pulse Oximetry 99 05/22/22 11:12 Oxygen Delivery Method 05/22/22 11:12 <Sidra Dyer DO - Last Filed: 05/23/22 12:48> Initial Vital Signs Initial Vital Signs: Vital Signs Temperature 98.4 F 05/22/22 11:12 Pulse Rate 86 05/22/22 11:12 Respiratory Rate 20 05/22/22 11:12 Blood Pressure 184/70 H 05/22/22 11:12 Pulse Oximetry 99 05/22/22 11:12 Oxygen Delivery Method 05/22/22 11:12 Course <MILADIS Cooley - Last Filed: 05/22/22 18:25> Course Course Narrative: Consultation with Dr. Pickard who is concern about patient's right hydroureter and neoplasm with severe hydro on the right with concern that it has obliterated her right ureter. He thinks that patient may do better in a facility with IR in case she needs a percutaneous drain, if she is admitted to the hospital tonight she will need to be NPO in case this happens. Orders Ordered: ED Orders 05/23/22 07:48 Prothrombin Time INR Urgent Acetaminophen (Acetaminophen 325 Mg Tablet) 650 mg PO Q6H PRN PRN Reason: Fever/Mild Pain (1-3) Hydromorphone HCl (Hydromorphone 0.5 Mg Inj) 0.5 mg IV Q4H PRN PRN Reason: Pain, Moderate (4-6) Ceftriaxone Sodium 1,000 mg/ (Sodium Chloride) 100 mls @ 200 mls/hr IV Q24H ELPIDIO Stop: 05/25/22 16:59 Sodium Chloride (Normal Saline 0.9%) 250 mls @ 21 mls/hr IV Q24H PRN PRN Reason: Flush Lactated Ringer's (Lactated Ringers) 1,000 mls @ 21 mls/hr IV CONT ELPIDIO Melatonin (Melatonin 3 Mg Tablet) 6 mg PO BEDTIME PRN PRN Reason: Insomnia Naloxone HCl (Naloxone 0.4 Mg/Ml Vial) 0.2 mg IV Q2MIN PRN PRN Reason: Opiate Reversal Polyethylene Glycol (Polyethylene Glycol 3350 17 Gm Powd.Pack) 17 gm PO DAILY PRN PRN Reason: Constipation Sennosides (Sennosides 8.6 Mg Tablet) 8.6 mg PO BID PRN PRN Reason: Constipation Sodium Chloride (Sodium Chloride 0.9% Flush) 10 ml IV PRN PRN PRN Reason: Flush Sodium Chloride (Sodium Chloride 0.9% Flush) 10 ml IV BID [facility] Last Admin: 05/23/22 10:56 Dose: 10 ml Documented By: MICHEAL Discontinued Medications Sterile Water 20 ml/ Mitomycin (20 mg) 0 ml INTRAVESIC NOW ONE Stop: 05/23/22 07:49 Ceftriaxone Sodium 1,000 mg/ (Sodium Chloride) 100 mls @ 200 mls/hr IV NOW ONE Stop: 05/22/22 15:00 Last Infusion: 05/22/22 18:09 Dose: 0 mls/hr Documented By: Admin: 05/22/22 17:11 Dose: 200 mls/hr Documented By: JUSTINA Phytonadione 10 mg/ Sodium (Chloride) 101 mls @ 202 mls/hr IV NOW ONE Stop: 05/22/22 18:08 Last Infusion: 05/22/22 19:21 Dose: 0 mls/hr Documented By: Admin: 05/22/22 18:29 Dose: 202 mls/hr Documented By: JUSTINA Cefazolin Sodium/Dextrose (Ancef) 100 mls @ 200 mls/hr IV NOW ONE Stop: 05/23/22 08:17 Ketorolac Tromethamine (Ketorolac 30 Mg/Ml Vial) 15 mg IV NOW ONE Stop: 05/22/22 16:56 Last Admin: 05/22/22 17:05 Dose: 15 mg Documented By: JUSTINA Phenazopyridine HCl (Phenazopyridine 100 Mg Tablet) 100 mg PO NOW ONE Stop: 05/22/22 15:00 Last Admin: 05/22/22 17:09 Dose: 100 mg Documented By: JUSTINA Vital Signs Vital signs: Vital Signs - 8 hr 05/22/22 11:12 05/22/22 16:03 05/22/22 16:05 Temperature 98.4 F Pulse Rate 86 78 79 Respiratory Rate 20 20 Blood Pressure 184/70 H Pulse Oximetry 99 99 Oxygen Delivery Method Room Air 05/22/22 16:05 05/22/22 16:30 05/22/22 17:00 Temperature Pulse Rate 73 68 Respiratory Rate 13 11 L Blood Pressure 199/78 H Pulse Oximetry 100 100 Oxygen Delivery Method 05/22/22 17:15 05/22/22 17:15 05/22/22 17:30 Temperature Pulse Rate 67 Respiratory Rate 12 Blood Pressure 203/81 H 186/79 H Pulse Oximetry 100 Oxygen Delivery Method 05/22/22 17:30 Temperature Pulse Rate 68 Respiratory Rate 15 Blood Pressure Pulse Oximetry 100 Oxygen Delivery Method <Sidra Dyer, - Last Filed: 05/23/22 12:48> Orders Ordered: ED Orders 05/23/22 07:48 Prothrombin Time INR Urgent Acetaminophen (Acetaminophen 325 Mg Tablet) 650 mg PO Q6H PRN PRN Reason: Fever/Mild Pain (1-3) Hydromorphone HCl (Hydromorphone 0.5 Mg Inj) 0.5 mg IV Q4H PRN PRN Reason: Pain, Moderate (4-6) Ceftriaxone Sodium 1,000 mg/ (Sodium Chloride) 100 mls @ 200 mls/hr IV Q24H [facility] Stop: 05/25/22 16:59 Sodium Chloride (Normal Saline 0.9%) 250 mls @ 21 mls/hr IV Q24H PRN PRN Reason: Flush Lactated Ringer's (Lactated Ringers) 1,000 mls @ 21 mls/hr IV CONT ELPIDIO Melatonin (Melatonin 3 Mg Tablet) 6 mg PO BEDTIME PRN PRN Reason: Insomnia Naloxone HCl (Naloxone 0.4 Mg/Ml Vial) 0.2 mg IV Q2MIN PRN PRN Reason: Opiate Reversal Polyethylene Glycol (Polyethylene Glycol 3350 17 Gm Powd.Pack) 17 gm PO DAILY PRN PRN Reason: Constipation Sennosides (Sennosides 8.6 Mg Tablet) 8.6 mg PO BID PRN PRN Reason: Constipation Sodium Chloride (Sodium Chloride 0.9% Flush) 10 ml IV PRN PRN PRN Reason: Flush Sodium Chloride (Sodium Chloride 0.9% Flush) 10 ml IV BID [facility] Last Admin: 05/23/22 10:56 Dose: 10 ml Documented By: LDV Discontinued Medications Sterile Water 20 ml/ Mitomycin (20 mg) 0 ml INTRAVESIC NOW ONE Stop: 05/23/22 07:49 Ceftriaxone Sodium 1,000 mg/ (Sodium Chloride) 100 mls @ 200 mls/hr IV NOW ONE Stop: 05/22/22 15:00 Last Infusion: 05/22/22 18:09 Dose: 0 mls/hr Documented By: Admin: 05/22/22 17:11 Dose: 200 mls/hr Documented By: JUSTINA Phytonadione 10 mg/ Sodium (Chloride) 101 mls @ 202 mls/hr IV NOW ONE Stop: 05/22/22 18:08 Last Infusion: 05/22/22 19:21 Dose: 0 mls/hr Documented By: Admin: 05/22/22 18:29 Dose: 202 mls/hr Documented By: JUSTINA Cefazolin Sodium/Dextrose (Ancef) 100 mls @ 200 mls/hr IV NOW ONE Stop: 05/23/22 08:17 Ketorolac Tromethamine (Ketorolac 30 Mg/Ml Vial) 15 mg IV NOW ONE Stop: 05/22/22 16:56 Last Admin: 05/22/22 17:05 Dose: 15 mg Documented By: JUSTINA Phenazopyridine HCl (Phenazopyridine 100 Mg Tablet) 100 mg PO NOW ONE Stop: 05/22/22 15:00 Last Admin: 05/22/22 17:09 Dose: 100 mg Documented By: JUSTINA Vital Signs Vital signs: Vital Signs - 8 hr 05/22/22 11:12 05/22/22 16:03 05/22/22 16:05 Temperature 98.4 F Pulse Rate 86 78 79 Respiratory Rate 20 20 Blood Pressure 184/70 H Pulse Oximetry 99 99 Oxygen Delivery Method Room Air 05/22/22 16:05 05/22/22 16:30 05/22/22 17:00 Temperature Pulse Rate 73 68 Respiratory Rate 13 11 L Blood Pressure 199/78 H Pulse Oximetry 100 100 Oxygen Delivery Method 05/22/22 17:15 05/22/22 17:15 05/22/22 17:30 Temperature Pulse Rate 67 Respiratory Rate 12 Blood Pressure 203/81 H 186/79 H Pulse Oximetry 100 Oxygen Delivery Method 05/22/22 17:30 Temperature Pulse Rate 68 Respiratory Rate 15 Blood Pressure Pulse Oximetry 100 Oxygen Delivery Method MDM - Female Genitourinary <MILADIS Cooley - Last Filed: 05/22/22 18:25> Lab Data Result diagrams: 05/23/22 07:48 05/23/22 07:48 Labs: Lab Results 05/22/22 05/22/22 05/22/22 Range/Units 12:11 12:11 16:48 WBC 7.5 (4.5-11.0) X10^3/uL RBC 3.22 L (4.0-5.2) X10^6/uL Hgb 10.5 L (12.0-16.0) g/dL Hct 30.6 L (36-46) % MCV 95.1 (80-100) fL MCH 32.5 (26-34) PG MCHC 34.2 (30-36) % RDW 17.8 H (11.6-14.8) % Plt Count 140 L (150-400) X10^3/uL Neut % (Auto) 56.0 (50-75) % Lymph % (Auto) 33.6 (25-40) % [place] % (Auto) 7.1 (3-14) % Eos % (Auto) 2.4 (2-4) % Baso % (Auto) 0.9 (0-2) % Neut # (Auto) 4200 (8596-3398) /uL Lymph # (Auto) 2500 (9106-1019) /uL [place] # (Auto) 500 (0-900) /uL Eos # (Auto) 200 (0-450) /uL Baso # (Auto) 100 (0-100) /uL PT (10.1-12.7) SECONDS INR (0.9-1.3) Sodium (137-145) mmol/L Potassium (3.4-5.1) mmol/L Chloride (98-107) mmol/L Carbon Dioxide (22-32) mmol/L BUN (7-17) mg/dL Creatinine (0.52-1.04) mg/dL Estimated GFR (>60) mL/min BUN/Creatinine Ratio (6-22) Glucose (80-110) mg/dL Calcium (8.4-10.2) mg/dL Total Bilirubin (0.2-1.3) mg/dL AST (14-36) IU/L ALT (<35) IU/L Alkaline Phosphatase (38-126) U/L Total Creatine Kinase (30-135) U/L CK-MB (CK-2) CK-MB (CK-2) Rel Index Troponin I (0.01-0.034) ng/mL Total Protein (6.3-8.2) g/dL Albumin (3.5-5.0) g/dL Globulin (1.7-4.1) g/dL Albumin/Globulin Ratio (1.0-2.8) Procalcitonin (<0.5) ng/mL Ur Bilirubin Confirm Negative (Negative) Urine RBC >100/hpf H (0-5/HPF) Urine WBC 30-100/hpf H (0-5/HPF) Ur Squamous Epith Cells 0-1 /hpf (0-5/HPF) Ur Transition Epith Cell 0-1/hpf (0-5/HPF) Urine Bacteria Few (2-10) H (None) Ur Culture Indicated? Specimen cultured Micro UA Comment Few oval fat bodies 05/22/22 05/22/22 05/22/22 Range/Units 16:48 16:48 16:48 WBC (4.5-11.0) X10^3/uL RBC (4.0-5.2) X10^6/uL Hgb (12.0-16.0) g/dL Hct (36-46) % MCV (80-100) fL MCH (26-34) PG MCHC (30-36) % RDW (11.6-14.8) % Plt Count (150-400) X10^3/uL Neut % (Auto) (50-75) % Lymph % (Auto) (25-40) % [place] % (Auto) (3-14) % Eos % (Auto) (2-4) % Baso % (Auto) (0-2) % Neut # (Auto) (3406-8747) /uL Lymph # (Auto) (8684-3528) /uL [place] # (Auto) (0-900) /uL Eos # (Auto) (0-450) /uL Baso # (Auto) (0-100) /uL PT 16.3 H (10.1-12.7) SECONDS INR 1.4 H (0.9-1.3) Sodium 140 (137-145) mmol/L Potassium 3.8 (3.4-5.1) mmol/L Chloride 107 (98-107) mmol/L Carbon Dioxide 23 (22-32) mmol/L BUN 40 H (7-17) mg/dL Creatinine 1.45 H (0.52-1.04) mg/dL Estimated GFR 37 L (>60) mL/min BUN/Creatinine Ratio 27.6 H (6-22) Glucose 98 (80-110) mg/dL Calcium 9.3 (8.4-10.2) mg/dL Total Bilirubin 0.9 (0.2-1.3) mg/dL AST 51 H (14-36) IU/L ALT 21 (<35) IU/L Alkaline Phosphatase 106 (38-126) U/L Total Creatine Kinase 28 L (30-135) U/L CK-MB (CK-2) TNP CK-MB (CK-2) Rel Index TNP Troponin I < 0.012 (0.01-0.034) ng/mL Total Protein 6.9 (6.3-8.2) g/dL Albumin 3.2 L (3.5-5.0) g/dL Globulin 3.7 (1.7-4.1) g/dL Albumin/Globulin Ratio 0.9 L (1.0-2.8) Procalcitonin 0.27 (<0.5) ng/mL Ur Bilirubin Confirm (Negative) Urine RBC (0-5/HPF) Urine WBC (0-5/HPF) Ur Squamous Epith Cells (0-5/HPF) Ur Transition Epith Cell (0-5/HPF) Urine Bacteria (None) Ur Culture Indicated? Micro UA Comment Urine Dip Bedside Urine Glucose Negative Bedside Urine Bilirubin + 1 Bedside Urine Ketone - Negative Urine Specific [place] 1.020 Bedside Urine Occult Blood +++ Bedside Urine pH 6.0 Bedside Urine Protein ++ 100 Bedside Urine Urobilinogen - Negative Bedside Urine Nitrite - Negative Bedside Urine Leukocytes ++ [address] scan - abdomen/pelvis: Radiologist's Impression: PROCEDURE:? CT ABDOMEN PELVIS WO CON ? INDICATIONS:? hx nephrolithiasis, acute cystitis, pelvic pain ? TECHNIQUE:? Axial sections were acquired from the lung bases to the pubic symphysis.? Coronal and sagittal reformats were performed.? For radiation dose reduction, the following was used: ?automated exposure control, adjustment of mA and/or kV according to patient size.? ? COMPARISON:? None. ? FINDINGS:? Image quality:? Excellent.? ? Lung bases:? Unremarkable.? ? Heart:? No significant findings.? At least moderate coronary artery calcification can be seen. ? URINARY: Right Kidney:? There is severe right-sided hydronephrosis.? No definite kidney stones are seen.? Apparent arterial calcification can be seen Right Ureter:? There is severe right-sided hydroureter.? A distal stone is not seen. ? Left Kidney: ? No sandy stones or hydronephrosis.? Apparent arterial calcification can be seen.? There is a mildly hyperdense cyst exophytic from the lateral left kidney measuring up to 3 cm. Left Ureter:? No hydroureter.? ? Bladder:? Focal bladder wall thickening is seen on the right, including at the ureteral orifice. ? ABDOMEN: Liver:? The liver demonstrates a nodular appearance.? To the limits of this noncontrast study, no focal liver lesion is seen. Gallbladder:? The gallbladder demonstrates layering gallstones.? ? ? Biliary ducts:? Unremarkable.? ? Pancreas:? Unremarkable.? ? Spleen:? Unremarkable.? ? Adrenal Glands:? Unremarkable.? ? ? Stomach and Bowel:? Stomach, small bowel loops, and colon are unremarkable.? Peritoneum:? Uaqp-if-wdxlawza simple ascites is seen, measuring 12 Hounsfield units.? No free air.? ? Ventral Wall: ? No hernia.? Abdominal Nodes:? No enlarged retroperitoneal or mesenteric lymph nodes.? Vessels:? Aorta and inferior vena cava are normal in size.? Atherosclerotic calcification is noted.? ? PELVIS: Pelvic Organs: This patient is status post hysterectomy. No adnexal masses are seen.? Pelvic Nodes: Unremarkable. Miscellaneous: No inguinal hernias are seen. ? ? ? Bones:? Extensive lumbar degenerative changes are seen.? Lower lumbar spine postoperative change can be seen, with right-sided laminectomies.? An L3 vertebral body hemangioma can be seen.? No frankly suspicious bony lesions are seen.? Mild levoconvex scoliotic curvature is noted.? ? IMPRESSION:? ? These imaging findings are highly concerning for right-sided bladder neoplasm, with associated obstruction of the right renal collecting system.? There is severe right-sided hydroureter and hydronephrosis. - Urgent urology referral is recommended. ? Nodular appearing liver.? Please consider cirrhosis. ? Xiki-ks-[id number] simple ascites is seen. ?? ? Additional findings: At least moderate coronary artery calcification Layering gallstones Apparent hyperdense cyst on the left laterally Hysterectomy L3 vertebral body hemangioma Mild levoconvex scoliotic curvature Lower lumbar spine right-sided laminectomies Lower lumbar spine degenerative change ? Note: Findings and recommendations discussed by telephone with Lianna Cabello at 3:50 p.m. [place] time on May 22, 2022.? Dictated by: Cem Snell M.D. on 05/22/2022 at 15:44 ? ? Approved by: Cem Snell M.D. on 05/22/2022 at 15:52 ? ECG Data Interpretation: EKG independently reviewed by myself at 1555 reveals normal sinus rhythm at 73 bpm with regular axis and intervals. No STEMI, ST segment changes, arrhythmia, or acute ischemic changes. MDM Narrative Medical decision making narrative: This is a 76-year-old female presents to the emergency department with hematuria, dysuria, states that she is had abdominal distention and generalized abdominal pain for approximately 1 month, she was thinking she had vaginal bleeding but has history of total hysterectomy many years ago. She was found to have sandy hematuria, presumable acute cystitis with urine microscopy showing over 100 RBCs, 30-100 wbc's, few bacteria with a few oval fat bodies. She was given 1 g of ceftriaxone while waiting for her lab work. She waited in the waiting room for approximately 4 hours before coming back to room, it was 1-2 hours longer before her lab work was completed. Patient has lab work from 1 year ago to compare to, today she was found to have mild anemia in comparison to then with a hemoglobin 10.5, hematocrit of 30.6. Thrombocytopenia with a platelet count of 140, her INR is elevated at 1.4 without prior to compare to, no significant electrolyte abnormalities, her creatinine is elevated at 1.45 but it is improved compared with her prior 1.75 with an improved GFR 37 compared to 20/8 0.3. [address] is [address]27. CT abdomen pelvis with contrast was phoned to me by the radiologist, imaging findings are highly concerning for right-sided bladder neoplasm with associated obstruction of the right renal collecting system, severe right-sided hydroureter with hydronephrosis, urgent Urology referral and consultation was completed with Dr. Pickard regarding these findings. Additional findings on her CT include a nodular appearing liver, [id number] simple ascites, layering gallstones, hyperdense cyst in the left kidney laterally, total hysterectomy, L3 vertebral body hemangioma, lower lumbar right-sided laminectomies and degenerative changes. Consultation with Dr. Pickard who accepts patient for admission, he agrees with plan to treat with ceftriaxone, NPO after midnight for possible intervention tonight or tomorrow depending on patient's status, continuing to monitor for worsening anemia and he will see the patient tomorrow. Consulted hospitalist Dr. Soto who accepts patient for admission, he understands that her INR is elevated and will order vitamin K. Discussed with patient the results of her CT with concerning finding of bladder neoplasm, hydronephrosis with hydroureter and nodular liver findings. Patient denies history of alcoholism, cirrhosis, or [place] problems. States that she has seen Dr. Mike for kidney problems in the past and she was told she did not need to follow-up any longer. She has history of skin cancer and saw aly aHrvey from Dermatology for this and never needed oncology. She is pending an appointment with Dr. Bosch with neurology in [place] for her frequent falls. She states that she falls weekly and has giving out sensation of her lower extremities. Patient's hypertension is not currently under control, she is not taking any antihypertensives at this time. When I discussed these findings with the patient, her blood pressure is 214/[address] Soto in transfer. Patient was informed of lab and javy ging results, pertinent diagnoses, consulting physicians, and treatment plan. I have spoken with the patient in regard to admission, patient understands and agrees. I have communicated the patient's evaluation and treatment plan to the admitting physician who agrees with admission. All questions answered at this time. <Sidra Dyer, DO - Last Filed: 05/23/22 12:48> Lab Data Labs: Lab Results 05/22/22 05/22/22 05/22/22 Range/Units 12:11 12:11 16:48 WBC 7.5 (4.5-11.0) X10^3/uL RBC 3.22 L (4.0-5.2) X10^6/uL Hgb 10.5 L (12.0-16.0) g/dL Hct 30.6 L (36-46) % MCV 95.1 (80-100) fL MCH 32.5 (26-34) PG MCHC 34.2 (30-36) % RDW 17.8 H (11.6-14.8) % Plt Count 140 L (150-400) X10^3/uL Neut % (Auto) 56.0 (50-75) % Lymph % (Auto) 33.6 (25-40) % [place] % (Auto) 7.1 (3-14) % Eos % (Auto) 2.4 (2-4) % Baso % (Auto) 0.9 (0-2) % Neut # (Auto) 4200 (4542-2946) /uL Lymph # (Auto) 2500 (6530-1522) /uL [place] # (Auto) 500 (0-900) /uL Eos # (Auto) 200 (0-450) /uL Baso # (Auto) 100 (0-100) /uL PT (10.1-12.7) SECONDS INR (0.9-1.3) Sodium (137-145) mmol/L Potassium (3.4-5.1) mmol/L Chloride (98-107) mmol/L Carbon Dioxide (22-32) mmol/L BUN (7-17) mg/dL Creatinine (0.52-1.04) mg/dL Estimated GFR (>60) mL/min BUN/Creatinine Ratio (6-22) Glucose (80-110) mg/dL Calcium (8.4-10.2) mg/dL Total Bilirubin (0.2-1.3) mg/dL AST (14-36) IU/L ALT (<35) IU/L Alkaline Phosphatase (38-126) U/L Total Creatine Kinase (30-135) U/L CK-MB (CK-2) CK-MB (CK-2) Rel Index Troponin I (0.01-0.034) ng/mL Total Protein (6.3-8.2) g/dL Albumin (3.5-5.0) g/dL Globulin (1.7-4.1) g/dL Albumin/Globulin Ratio (1.0-2.8) Procalcitonin (<0.5) ng/mL Ur Bilirubin Confirm Negative (Negative) Urine RBC >100/hpf H (0-5/HPF) Urine WBC 30-100/hpf H (0-5/HPF) Ur Squamous Epith Cells 0-1 /hpf (0-5/HPF) Ur Transition Epith Cell 0-1/hpf (0-5/HPF) Urine Bacteria Few (2-10) H (None) Ur Culture Indicated? Specimen cultured Micro UA Comment Few oval fat bodies 05/22/22 05/22/22 05/22/22 Range/Units 16:48 16:48 16:48 WBC (4.5-11.0) X10^3/uL RBC (4.0-5.2) X10^6/uL Hgb (12.0-16.0) g/dL Hct (36-46) % MCV (80-100) fL MCH (26-34) PG MCHC (30-36) % RDW (11.6-14.8) % Plt Count (150-400) X10^3/uL Neut % (Auto) (50-75) % Lymph % (Auto) (25-40) % [place] % (Auto) (3-14) % Eos % (Auto) (2-4) % Baso % (Auto) (0-2) % Neut # (Auto) (8685-7642) /uL Lymph # (Auto) (7162-3835) /uL [place] # (Auto) (0-900) /uL Eos # (Auto) (0-450) /uL Baso # (Auto) (0-100) /uL PT 16.3 H (10.1-12.7) SECONDS INR 1.4 H (0.9-1.3) Sodium 140 (137-145) mmol/L Potassium 3.8 (3.4-5.1) mmol/L Chloride 107 (98-107) mmol/L Carbon Dioxide 23 (22-32) mmol/L BUN 40 H (7-17) mg/dL Creatinine 1.45 H (0.52-1.04) mg/dL Estimated GFR 37 L (>60) mL/min BUN/Creatinine Ratio 27.6 H (6-22) Glucose 98 (80-110) mg/dL Calcium 9.3 (8.4-10.2) mg/dL Total Bilirubin 0.9 (0.2-1.3) mg/dL AST 51 H (14-36) IU/L ALT 21 (<35) IU/L Alkaline Phosphatase 106 (38-126) U/L Total Creatine Kinase 28 L (30-135) U/L CK-MB (CK-2) TNP CK-MB (CK-2) Rel Index TNP Troponin I < 0.012 (0.01-0.034) ng/mL Total Protein 6.9 (6.3-8.2) g/dL Albumin 3.2 L (3.5-5.0) g/dL Globulin 3.7 (1.7-4.1) g/dL Albumin/Globulin Ratio 0.9 L (1.0-2.8) Procalcitonin 0.27 (<0.5) ng/mL Ur Bilirubin Confirm (Negative) Urine RBC (0-5/HPF) Urine WBC (0-5/HPF) Ur Squamous Epith Cells (0-5/HPF) Ur Transition Epith Cell (0-5/HPF) Urine Bacteria (None) Ur Culture Indicated? Micro UA Comment Urine Dip Bedside Urine Glucose Negative Bedside Urine Bilirubin + 1 Bedside Urine Ketone - Negative Urine Specific [place] 1.020 Bedside Urine Occult Blood +++ Bedside Urine pH 6.0 Bedside Urine Protein ++ 100 Bedside Urine Urobilinogen - Negative Bedside Urine Nitrite - Negative Bedside Urine Leukocytes ++ 125 Esterase Discharge Plan Departure Patient Disposition: Admitted As Inpatient Clinical Impression: Bladder neoplasm, Hydroureter, Hydronephrosis of right kidney, Elevated INR, Hypertension, uncontrolled, History of malignant neoplasm of skin, History of diabetes mellitus Urinary tract infection Qualifiers: Urinary tract infection type: acute cystitis Hematuria presence: with hematuria Qualified Code(s): N30.01 - Acute cystitis with hematuria Hematuria Qualifiers: Hematuria type: gross Qualified Code(s): R31.0 - Gross hematuria Admit Date/Time: 05/22/22 18:10 Admit Provider: Emmanuel Soto <Sidra Dyer DO - Last Filed: 05/23/22 12:48> Cosign ED Attending Cosignature Attestation: I was immediately available in the department for consultation. Documentation has been reviewed. Case was discussed, agree with current plan.
[2022-05-22 17:00] LABS: Add Manual Diff / Slide Review NO; Basophils Absolute Auto 100 /uL (0-100); Basophils Percent Auto 0.9 % (0-2); Eosinophils Absolute Auto 200 /uL (0-450); Eosinophils Percent Auto 2.4 % (2-4); Hematocrit 30.6 % (36-46); Hemoglobin 10.5 g/dL (12.0-16.0); Lymphocytes Absolute Auto 2500 /uL (1100-4500); Lymphocytes Percent Auto 33.6 % (25-40); Mean Corpuscular HGB Conc 34.2 % (30-36); Mean Corpuscular Hemoglobin 32.5 PG (26-34); Mean Corpuscular Volume 95.1 fL (80-100); Monocytes Absolute Auto 500 /uL (0-900); Monocytes Percent Auto 7.1 % (3-14); Neutrophils Absolute Auto 4200 /uL (1500-7000); Platelet Count 140 X10^3/uL (150-400); Red Blood Cell Count 3.22 X10^6/uL (4.0-5.2); Red Cell Distribution Width 17.8 % (11.6-14.8); White Blood Cell Count 7.5 X10^3/uL (4.5-11.0)
[2022-05-22] MEDS: KETOROLAC 30 MG/ML VIAL 15 MG IV (17:05)
[2022-05-22] MEDS: PHENAZOPYRIDINE 100 MG TABLET PO (17:09)
[2022-05-22] MEDS: cefTRIAXone 1,000 MG in SODIUM CHLORIDE 0.9% 100 ML 200 MG IV (17:11)
[2022-05-22 17:17] LABS: INR 1.4 (0.9-1.3); Prothrombin Time 16.3 SECONDS (10.1-12.7)
[2022-05-22 17:21] LABS: Alanine Aminotransferase 21 IU/L (<35); Albumin 3.2 g/dL (3.5-5.0); Albumin Globulin Ratio 0.9 (1.0-2.8); Alkaline Phosphatase 106 U/L (38-126); Aspartate Aminotransferase 51 IU/L (14-36); BUN Creatinine Ratio 27.6 (6-22); Bilirubin Total 0.9 mg/dL (0.2-1.3); Blood Urea Nitrogen 40 mg/dL (7-17); Calcium 9.3 mg/dL (8.4-10.2); Carbon Dioxide 23 mmol/L (22-32); Chloride 107 mmol/L (98-107); Creatine Kinase 28 U/L (30-135); Estimated Glomerular Filt Rate 37 mL/min (>60); Globulin 3.7 g/dL (1.7-4.1); Glucose 98 mg/dL (80-110); HEMOLYSIS 22 (0-50); Potassium 3.8 mmol/L (3.4-5.1); Sodium 140 mmol/L (137-145); Total Protein 6.9 g/dL (6.3-8.2)
[2022-05-22 17:33] LABS: Troponin I < 0.012 ng/mL (0.01-0.034)
[2022-05-22 17:38] LABS: Procalcitonin 0.27 ng/mL (<0.5)
[2022-05-22] MEDS: PHYTONADIONE (VIT K1) 10 MG in SODIUM CHLORIDE 0.9% 100 ML 202 MG IV (18:29)
[2022-05-22 19:33] LABS: COVID19 -Nasal RAPID Negative (Negative)
--- NOTE | 2022-05-22 21:29 | P.HP_ITS ---
History of Present Illness History of Present Illness Date Patient Seen: 05/22/22 Time Patient Seen: 21:30 Chief complaint: blood in urine Narrative: Imelda Weiss is a 76-year-old female with a hx of afib, HTN, Insulin diabetes, who has had a reported intention 50lb weight loss over the past year-allowing her to come off all her medication. Who presented to the emergency department complaining of hematuria, dysuria, urinary frequency and urgency and states that she has abd pain after eating.? Was seen in [facility] a few days ago she had a pelvic ultrasound , and was advised they found no issues.? History of kidney stones, is pending a new patient appointment with Dr. Larson and is a previous patient of Dr. Cisneros.? Chronic low energy for several months. In ED she c/o pain everywhere at baseline, reports urine has a large amount of blood in it.?She complains of abdominal distention, bloating and feeling generalized pain, without focal tenderness.? He denies any vaginal discharge On admit she denied fevers, chills, back pain, abd pain, nausea, vomiting, body aches, flank pain, has been up to urinate multiple times on the floor without hematuria, dysuria, urinary frequency and urgency. She has been having episodes of hypogycemia. Her engineer systems is Dr. Vogt, states that she saw him recently and she does not have any new problems.?Patient had elevated B/P in the ED 218/81. On admit v/s stable 97.1, 140/89,87,18, 97% on Rm Air. NO WBC or left shift, procal-neg, The following labs are at base line H/H 10.5/30.6,, PLT 140, BUN 40, LOG DECKMAN.1.45, GFR 37. Trop-neg, Albumin 3.2 ABD/Pelvis CT:findings are highly concerning for right-sided bladder neoplasm, with associated obstruction of the right renal collecting system.? There is severe right-sided hydroureter and hydronephrosis. Patient admitted for Bladder neoplasm, UTI, Hematuria, HTN urgency. [facility] to Consult Patient History Medical History Cervical stenosis of spinal canal Depression with anxiety Diabetes Falls frequently Herniated nucleus pulposus with myelopathy, cervical Hyperlipidemia Hypertension Myopathy Stable angina Surgical History History of ankle surgery History of appendectomy History of back surgery History of hysterectomy Family & Social History Family History Father Diabetes mellitus Liver cancer Mother Diabetes mellitus COPD (chronic obstructive pulmonary disease) Asthma Family/Other Cancer Family/Other Heart problem Social History: household members spouse Prior Living Arrangements House Safety & Behavioral: Feels Safe in Current Yes Environment Been Physically Hurt or No Threatened By a Person Tobacco & Substance use: Smoking Status Former smoker alcohol intake current alcohol intake frequency holiday/special occasion Substance Use Type does not use Meds Home Medications and Allergies Home Medications Medication Instructions Recorded Confirmed Type amlodipine 2.5 mg tablet 2.5 mg PO DAILY 05/23/22 05/23/22 History atorvastatin 20 mg tablet 20 mg PO DAILY 05/23/22 05/23/22 History bupropion HCl 150 mg 24 hr tablet, 150 mg PO DAILY 05/23/22 05/23/22 History extended release fenofibrate 160 mg tablet 160 mg PO DAILY 05/23/22 05/23/22 History fluoxetine 40 mg capsule 40 mg PO DAILY 05/23/22 05/23/22 History isosorbide dinitrate 10 mg tablet 10 mg PO BID 05/23/22 05/23/22 History levothyroxine 50 mcg tablet 50 mcg PO DAILY 05/23/22 05/23/22 History omeprazole 20 mg capsule,delayed 20 mg PO BID 05/23/22 05/23/22 History release Allergies Allergy/AdvReac Type Severity Reaction Status Date / Time oxycodone AdvReac Severe Hallucinati Verified 05/23/22 15:59 ng cinnamon AdvReac acid Verified 05/23/22 15:59 reflex, GI upset sulfamethoxazole AdvReac GI upset Verified 05/23/22 15:59 [From Bactrim] trimethoprim [From Bactrim] AdvReac GI upset Verified 05/23/22 15:59 mushrooms Allergy swollen Uncoded 05/23/22 15:59 and watery eyes raw onion AdvReac GI upset Uncoded 05/23/22 15:59 Review of Systems Review of Systems Narrative: All 12 point systems reviewed with the patient and are negative except otherwise documented. Exam Vital Signs (past 8 hours): - 05/22/22 19:30 05/22/22 20:45 05/22/22 22:33 Temperature 97.1 F L Pulse Rate 79 87 Respiratory Rate 40 H 18 Blood Pressure 140/89 Pulse Oximetry 100 97 Oxygen Delivery Method Room Air Oxygen Flow Rate 0 05/23/22 00:48 Temperature 96.8 F L Pulse Rate 63 Respiratory Rate 16 Blood Pressure 160/51 H Pulse Oximetry 97 Oxygen Delivery Method Oxygen Flow Rate 0 Oxygen Delivery Method Room Air Oxygen Flow Rate 0 Narrative Exam Narrative: General:? Patient is a small thin appearing aliya elderly female in no distress at this time. HEENT:? Normocephalic, atraumatic, extraocular muscles intact, oral pharynx is clear and mucous membranes are moist.? Neck is supple and symmetric, trachea is midline, no adenopathy, no thyroid enlargement, nontender, no masses palpated.? Negative for JVD Chest:? Normal AP diameter and contour without kyphoscoliosis, no nasal flaring, retractions, or tachypneic labored breathing. Lungs:? Auscultation of all lung beck are clear without adventitious sounds, wheezes, rhonchi, or rales. Cardio:? regular rate and rhythm without murmur, rubs, or gallops, no carotid bruit, no cardiac pulsations present. Abdomen:? Soft, nontender with gentle palpation.mild suprapubic tenderness,? Bowel sounds are hypoactive present in all 4 quadrants without guarding or rebound, no CVA tenderness. Musculoskeletal:? Muscle strength and tone are equal within normal limits, no deformity, crepitus, effusions, cyanosis, clubbing or edema present.? Full range of motion intact radial and pedal pulses are normal. Skin:? Warm dry and intact without rashes, ulcerations or petechiae.? Neuro:? Alert and orientated x3, moves all extremities, sensation to touch intact, no gross deficits noted of cranial nerves. Psych:? Patient has a well-kept appearance, appropriate affect, mental status attitude thought context and judgment are appropriate for age. Objective Labs Result Diagrams: 05/23/22 07:48 05/23/22 07:48 Labs: Laboratory Results - last 24 hr 05/22/22 05/22/22 05/22/22 12:11 12:11 16:48 WBC 7.5 RBC 3.22 L Hgb 10.5 L Hct 30.6 L MCV 95.1 MCH 32.5 MCHC 34.2 RDW 17.8 H Plt Count 140 L Neut % (Auto) 56.0 Lymph % (Auto) 33.6 [place] % (Auto) 7.1 Eos % (Auto) 2.4 Baso % (Auto) 0.9 Neut # (Auto) 4200 Lymph # (Auto) 2500 [place] # (Auto) 500 Eos # (Auto) 200 Baso # (Auto) 100 PT INR Sodium Potassium Chloride Carbon Dioxide BUN Creatinine Estimated GFR BUN/Creatinine Ratio Glucose Calcium Total Bilirubin AST ALT Alkaline Phosphatase Total Creatine Kinase CK-MB (CK-2) CK-MB (CK-2) Rel Index Troponin I Total Protein Albumin Globulin Albumin/Globulin Ratio Procalcitonin Ur Bilirubin Confirm Negative Urine RBC >100/hpf H Urine WBC 30-100/hpf H Ur Squamous Epith Cells 0-1 /hpf Ur Transition Epith Cell 0-1/hpf Urine Bacteria Few (2-10) H Ur Culture Indicated? Specimen cultured Micro UA Comment Few oval fat bodies SARS-CoV-2 (PCR) 05/22/22 05/22/22 05/22/22 16:48 16:48 16:48 WBC RBC Hgb Hct MCV MCH MCHC RDW Plt Count Neut % (Auto) Lymph % (Auto) [place] % (Auto) Eos % (Auto) Baso % (Auto) Neut # (Auto) Lymph # (Auto) [place] # (Auto) Eos # (Auto) Baso # (Auto) PT 16.3 H INR 1.4 H Sodium 140 Potassium 3.8 Chloride 107 Carbon Dioxide 23 BUN 40 H Creatinine 1.45 H Estimated GFR 37 L BUN/Creatinine Ratio 27.6 H Glucose 98 Calcium 9.3 Total Bilirubin 0.9 AST 51 H ALT 21 Alkaline Phosphatase 106 Total Creatine Kinase 28 L CK-MB (CK-2) TNP CK-MB (CK-2) Rel Index TNP Troponin I < 0.012 Total Protein 6.9 Albumin 3.2 L Globulin 3.7 Albumin/Globulin Ratio 0.9 L Procalcitonin 0.27 Ur Bilirubin Confirm Urine RBC Urine WBC Ur Squamous Epith Cells Ur Transition Epith Cell Urine Bacteria Ur Culture Indicated? Micro UA Comment SARS-CoV-2 (PCR) 05/22/22 18:55 WBC RBC Hgb Hct MCV MCH MCHC RDW Plt Count Neut % (Auto) Lymph % (Auto) [place] % (Auto) Eos % (Auto) Baso % (Auto) Neut # (Auto) Lymph # (Auto) [place] # (Auto) Eos # (Auto) Baso # (Auto) PT INR Sodium Potassium Chloride Carbon Dioxide BUN Creatinine Estimated GFR BUN/Creatinine Ratio Glucose Calcium Total Bilirubin AST ALT Alkaline Phosphatase Total Creatine Kinase CK-MB (CK-2) CK-MB (CK-2) Rel Index Troponin I Total Protein Albumin Globulin Albumin/Globulin Ratio Procalcitonin Ur Bilirubin Confirm Urine RBC Urine WBC Ur Squamous Epith Cells Ur Transition Epith Cell Urine Bacteria Ur Culture Indicated? Micro UA Comment SARS-CoV-2 (PCR) Negative Assessment & Plan Assessment & Plan narrative: Imelda Weiss is a 76-year-old female with a hx of afib, HTN, Insulin diabetes, who has had a reported intention 50lb weight loss over the past year-allowing her to come off all her medication. Who presented to the emergency department complaining of hematuria, dysuria, urinary frequency and urgency and states that she has abd pain after eating. Admitted for bladder neoplasm, UTI, right-sided hydroureter and hydronephrosis. 1. Bladder neoplasm, acute, with suprapubic abd pain, hematuria, acute, present on admission -NO WBC , left shift, procal-neg, ABD/Pelvis CT:findings are highly concerning for right-sided bladder neoplasm, with associated obstruction of the right renal collecting system.? There is Severe right-sided hydroureter and hydronephrosis. -Dr. Pickard to Consult and manage 2.Severe right-sided hydroureter and hydronephrosis, acute, resulting in UTI, acute, present on admission -U/A positive RBC, WBC-culture pending, blood cultures pending -Rocephin ordered -antiametic and pain management 3. Supratheraputic INR, acute, present on admission -PT16.3/INR1.4 -Vit K given - to meet guidelines for surgery 4. HTN urgency with History of essential HTN diagnosis, acute, present on admission -In Ed 218/81- resolved -on admit 140/89 -pt does not require medication management of her blood pressure 5. Malnutrition, moderate, acute on chronic, present on admission -dietary consult ordered, to asses and assist with caloric intake -malnutrition may be a sign of malignancy as 50 lb wt loss in past 6 months, it will impair healing, and impact illness recovery, increase complications & poor health out comes. Code status:Full Surrogate decision maker: jay mahoney spouse COVID PCR:Negative DVT/VTE prophylaxis:held medications for possible surgery, SCD's only Disposition:acute admit expected length of stay >2 midnights I have utilized all available immediate resources to obtain, update, or review the patient's current medications. I confirmed that the patient's advanced care plan is present, Code status is documented and/or surrogate decision maker is listed in the patient's medical record. I have personally reviewed patient's chart notes from PCP, specialists, diagnostic imaging, and laboratory, Time Spent With Patient Critical Care time: I spent a total of [] minutes of critical care time on this patient's care today ; this time is exclusive of procedural time. Quality VTE Deep Vein Thrombosis/Pulmonary Embolism Present on Admission: No
--- NOTE | 2022-05-22 22:40 | PC.ADMIT ---
[address] [facility] Admission Note: The patient,Imelda Weiss,76 y/o, was given written information regarding hospital policies, unit procedures and contact persons. Patient's smoking status: Former smoker. Vital Signs - 8 hr 05/22/22 16:03 05/22/22 16:05 05/22/22 16:05 Temperature Pulse Rate 78 79 Respiratory Rate 20 Blood Pressure 199/78 H Pulse Oximetry 99 Oxygen Delivery Method Oxygen Flow Rate 05/22/22 16:30 05/22/22 17:00 05/22/22 17:15 Temperature Pulse Rate 73 68 67 Respiratory Rate 13 11 L 12 Blood Pressure Pulse Oximetry 100 100 100 Oxygen Delivery Method Oxygen Flow Rate 05/22/22 17:15 05/22/22 17:30 05/22/22 17:30 Temperature Pulse Rate 68 Respiratory Rate 15 Blood Pressure 203/81 H 186/79 H Pulse Oximetry 100 Oxygen Delivery Method Oxygen Flow Rate 05/22/22 18:00 05/22/22 18:00 05/22/22 18:38 Temperature Pulse Rate 68 75 Respiratory Rate 19 16 Blood Pressure 218/81 H Pulse Oximetry 100 100 Oxygen Delivery Method Oxygen Flow Rate 05/22/22 19:00 05/22/22 19:30 05/22/22 20:45 Temperature 97.1 F L Pulse Rate 71 79 87 Respiratory Rate 32 H 40 H 18 Blood Pressure 140/89 Pulse Oximetry 100 100 97 Oxygen Delivery Method Oxygen Flow Rate 0 05/22/22 22:33 Temperature Pulse Rate Respiratory Rate Blood Pressure Pulse Oximetry Oxygen Delivery Method Room Air Oxygen Flow Rate Patient admitted to room 204 at 2100 from ER. Is alert and oriented. Breath sounds CTA with RA sat of 97%. HRR. Had quite elevated BP in ER but on admission had improved to 140/89. Denies nausea. BT present and abdomen is soft; denies tenderness. Does report having abdominal pain from epigastric area to suprapubic area after eating but denies any at time of assessment. Reports she has been having bleeding with urination along with large clots; unknown if urinary vs vaginal. Bilateral calf SCD's applied. Reports history of multiple falls when legs just give out; uses walker. Fall risk score is high and bed alarm is activated. Oriented to call light and bed controls.
[2022-05-23] VITALS (16 sets, daily range): BP systolic 114–196; BP diastolic 51–77; PULSE 60–90; RESP 10–22; TEMP 35.9–37.1; O2SAT 94–100
--- NOTE | 2022-05-23 | PATH_ITS ---
[facility] Accession Number: [id number] . 01 Material submitted: . bladder neck - RIGHT TRIGONE/BLADDER NECK . 01 Diagnosis: Urinary Bladder, Trigone/Bladder Neck, Right Side, Transurethral Resection: Invasive high-grade papillary urothelial carcinoma, with involvement of lamina propria. Muscularis propria present, uninvolved. Negative for lymphovascular space invasion. MRV 05/25/2022 1522 Local . 01 Electronically signed: . Yanni Ochoa MD, Pathologist NPI- [id number] . 01 Gross description: . RIGHT TRIGONE/BLADDER NECK: Received in formalin are multiple fragment(s) of lee, soft tissue measuring 0.1 x 0.1 x 0.1 cm to 0.8 x 0.6 x 0.3 cm submitted entirely in 2 cassette(s) /TONE 05/24/2022 0111 Local . 01 Pathologist provided ICD-10: C67.9 . 01 CPT . 986947 Specimen Comment: A courtesy copy of this report has been sent to [phone] Performed at: 01 [facility] [address] [place] [address], [place], [place] [id number] MD Edmund Cisneros MD Phone: [phone]
--- NOTE | 2022-05-23 07:14 | PM.PN.1 ---
Subjective Subjective Date Patient Seen: 05/23/22 Interval history: Patient says she continues to have bloody urine with clots. No other complaints. Exam Vital Signs (past 8 hours): - 05/23/22 00:48 Temperature 96.8 F L Pulse Rate 63 Respiratory Rate 16 Blood Pressure 160/51 H Pulse Oximetry 97 Oxygen Flow Rate 0 Oxygen Delivery Method Room Air Oxygen Flow Rate 0 Narrative Exam Narrative: General:? Patient is a well-developed, well-nourished female in no distress at this time. HEENT:? Normocephalic, atraumatic, extraocular muscles intact, oral pharynx is clear and mucous membranes are moist.? Neck is supple and symmetric, trachea is midline, no adenopathy, no thyroid enlargement, nontender, no masses palpated.? Negative for JVD Chest:? Normal AP diameter and contour without kyphoscoliosis, no nasal flaring, retractions, or tachypneic labored Lungs:? Auscultation of all lung beck are clear without adventitious sounds, wheezes, rhonchi, or rales. Cardio:? S1 & S2 with regular rate and rhythm without murmur, rubs, or gallops, no carotid bruit, no cardiac pulsations present. Abdomen:? Soft nontender, negative for organomegaly, or masses.? Bowel sounds are present in all 4 quadrants without guarding or rebound, no CVA tenderness. Musculoskeletal:? Muscle strength and tone are equal within normal limits, no deformity, crepitus, effusions, cyanosis, clubbing or edema present.? Full range of motion intact radial and pedal pulses are normal. Skin:? Warm dry and intact without rashes, ulcerations or petechiae.? Neuro:? Alert and orientated x3, strength is +5/5 in all extremities, sensation to touch intact, no gross deficits noted of cranial nerves. Psych:? Patient has a well-kept appearance, appropriate affect, mental status attitude thought context and judgment appear slightly irregular, inappropriate. Objective Labs Result Diagrams: 05/23/22 07:48 05/23/22 07:48 Labs: Laboratory Results - last 24 hr 05/22/22 05/22/22 05/22/22 12:11 12:11 16:48 WBC 7.5 RBC 3.22 L Hgb 10.5 L Hct 30.6 L MCV 95.1 MCH 32.5 MCHC 34.2 RDW 17.8 H Plt Count 140 L Neut % (Auto) 56.0 Lymph % (Auto) 33.6 [place] % (Auto) 7.1 Eos % (Auto) 2.4 Baso % (Auto) 0.9 Neut # (Auto) 4200 Lymph # (Auto) 2500 [place] # (Auto) 500 Eos # (Auto) 200 Baso # (Auto) 100 PT INR Sodium Potassium Chloride Carbon Dioxide BUN Creatinine Estimated GFR BUN/Creatinine Ratio Glucose Calcium Total Bilirubin AST ALT Alkaline Phosphatase Total Creatine Kinase CK-MB (CK-2) CK-MB (CK-2) Rel Index Troponin I Total Protein Albumin Globulin Albumin/Globulin Ratio Procalcitonin Ur Bilirubin Confirm Negative Urine RBC >100/hpf H Urine WBC 30-100/hpf H Ur Squamous Epith Cells 0-1 /hpf Ur Transition Epith Cell 0-1/hpf Urine Bacteria Few (2-10) H Ur Culture Indicated? Specimen cultured Micro UA Comment Few oval fat bodies SARS-CoV-2 (PCR) 05/22/22 05/22/22 05/22/22 16:48 16:48 16:48 WBC RBC Hgb Hct MCV MCH MCHC RDW Plt Count Neut % (Auto) Lymph % (Auto) [place] % (Auto) Eos % (Auto) Baso % (Auto) Neut # (Auto) Lymph # (Auto) [place] # (Auto) Eos # (Auto) Baso # (Auto) PT 16.3 H INR 1.4 H Sodium 140 Potassium 3.8 Chloride 107 Carbon Dioxide 23 BUN 40 H Creatinine 1.45 H Estimated GFR 37 L BUN/Creatinine Ratio 27.6 H Glucose 98 Calcium 9.3 Total Bilirubin 0.9 AST 51 H ALT 21 Alkaline Phosphatase 106 Total Creatine Kinase 28 L CK-MB (CK-2) TNP CK-MB (CK-2) Rel Index TNP Troponin I < 0.012 Total Protein 6.9 Albumin 3.2 L Globulin 3.7 Albumin/Globulin Ratio 0.9 L Procalcitonin 0.27 Ur Bilirubin Confirm Urine RBC Urine WBC Ur Squamous Epith Cells Ur Transition Epith Cell Urine Bacteria Ur Culture Indicated? Micro UA Comment SARS-CoV-2 (PCR) 05/22/22 18:55 WBC RBC Hgb Hct MCV MCH MCHC RDW Plt Count Neut % (Auto) Lymph % (Auto) [place] % (Auto) Eos % (Auto) Baso % (Auto) Neut # (Auto) Lymph # (Auto) [place] # (Auto) Eos # (Auto) Baso # (Auto) PT INR Sodium Potassium Chloride Carbon Dioxide BUN Creatinine Estimated GFR BUN/Creatinine Ratio Glucose Calcium Total Bilirubin AST ALT Alkaline Phosphatase Total Creatine Kinase CK-MB (CK-2) CK-MB (CK-2) Rel Index Troponin I Total Protein Albumin Globulin Albumin/Globulin Ratio Procalcitonin Ur Bilirubin Confirm Urine RBC Urine WBC Ur Squamous Epith Cells Ur Transition Epith Cell Urine Bacteria Ur Culture Indicated? Micro UA Comment SARS-CoV-2 (PCR) Negative PFSH Medical History Cervical stenosis of spinal canal Depression with anxiety Diabetes Falls frequently Herniated nucleus pulposus with myelopathy, cervical Hyperlipidemia Hypertension Myopathy Stable angina Surgical History History of ankle surgery History of appendectomy History of back surgery History of hysterectomy Family History Father Diabetes mellitus Liver cancer Mother Diabetes mellitus COPD (chronic obstructive pulmonary disease) Asthma Family/Other Cancer Family/Other Heart problem Social History marital status: household members: spouse Smoking Status: Former smoker alcohol intake: current Assessment & Plan Assessment & Plan narrative: Imelda Weiss is a 76-year-old female with a hx of afib, HTN, Insulin diabetes, who has had a reported intention 50lb weight loss over the past year-allowing her to come off all her medication. Who presented to the emergency department complaining of hematuria, dysuria, urinary frequency and urgency and states that she has abd pain after eating. Admitted for bladder neoplasm, UTI, right-sided hydroureter and hydronephrosis. 1. Bladder neoplasm, acute, with suprapubic abd pain, hematuria, acute, present on admission -NO WBC , left shift, procal-neg, ABD/Pelvis CT:findings are highly concerning for right-sided bladder neoplasm, with associated obstruction of the right renal collecting system.? There is Severe right-sided hydroureter and hydronephrosis. -Dr. Pickard taking for cystoscopy with stent placement 05/23 2.Severe right-sided hydroureter and hydronephrosis, acute, resulting in UTI, acute, present on admission -U/A positive RBC, WBC-culture pending, blood cultures pending -Rocephin 1g x3 days -antiametic and pain management 3. Supratheraputic INR, acute, present on admission -PT16.3/INR1.4 -Vit K given, INR now 1.3 4. HTN urgency with History of essential HTN diagnosis, acute, present on admission -In Ed 218/81- resolved -on admit 140/89 -pt does not require medication management of her blood pressure 5. Malnutrition, moderate, acute on chronic, present on admission -dietary consult ordered, to asses and assist with caloric intake -malnutrition may be a sign of malignancy as 50 lb wt loss in past 6 months, it will impair healing, and impact illness recovery, increase complications & poor health out comes. Code status:Full Surrogate decision maker: jay mahoney spouse COVID PCR:Negative DVT/VTE prophylaxis:held medications for possible surgery, SCD's only Disposition: Pending cystoscopy and potential stent placement. If not able to stent, will need IR perc drain placement in kidney. Time Spent With Patient Critical Care time: I spent a total of [] minutes of critical care time on this patient's care today; this time is exclusive of procedural time. Quality VTE Deep Vein Thrombosis/Pulmonary Embolism Present on Admission: No
--- NOTE | 2022-05-23 07:52 | P.CONS_ITS ---
History of Present Illness Consult details Date Patient Seen: 05/23/22 Time Patient Seen: 07:10 Chief complaint: blood in urine Reason for consult: Gross hematuria and right hydronephrosis secondary to probable neoplasm. Requesting provider: Emmanuel Soto Narrative: The patient is a pleasant 76-year-old woman presented to [facility] ED last evening with complaint of ongoing urinary dysuria, frequency, urgency and visible blood in the urine. She states that it has been going on for at least 3 or 4 months. She reports that she would had an ultrasound performed at [facility] and was informed that there were no evident findings per her report/recollection. She is a previous smoker who quit in her 30s. She grew up in [facility] and endorses that she may have had exposures to agricultural pesticides and or herbicides in her childhood. Noncontrast CT identified moderate to severe right hydronephrosis, [id number] parenchymal atrophy, and hydroureter to the level of the bladder where a probable thickening of the right bladder wall and neoplasm are suspected. There is no evidence of pelvic or retroperitoneal adenopathy. The patient is status post total hysterectomy years ago for benign disease. Meds Home Medications and Allergies Home Medications Medication Instructions Recorded Confirmed Type No Known Home Medications 05/22/22 05/22/22 History Allergies Allergy/AdvReac Type Severity Reaction Status Date / Time oxycodone AdvReac Severe Hallucinati Verified 05/22/22 11:20 ng cinnamon AdvReac acid Verified 05/22/22 11:20 reflex, GI upset sulfamethoxazole AdvReac GI upset Verified 05/22/22 11:20 [From Bactrim] trimethoprim [From Bactrim] AdvReac GI upset Verified 05/22/22 11:20 mushrooms Allergy swollen Uncoded 05/22/22 11:20 and watery eyes raw onion AdvReac GI upset Uncoded 05/22/22 11:20 Review of Systems Review of Systems ROS: Yes All systems reviewed with the patient and are negative except as otherwise documented Exam Vital Signs (past 8 hours): - 05/23/22 00:48 Temperature 96.8 F L Pulse Rate 63 Respiratory Rate 16 Blood Pressure 160/51 H Pulse Oximetry 97 Oxygen Flow Rate 0 Oxygen Delivery Method Room Air Oxygen Flow Rate 0 Narrative Exam Narrative: She is a well-developed, thin elderly woman in no current distress. Head/neck-sclera clear and pupils are round and equal. No visible evidence of J VD or adenopathy. Chest-equal and unlabored expansion bilaterally. Heart-regular rate. Abdomen-normal active bowel tones without palpable mass, or tenderness. Objective Labs Result Diagrams: 05/22/22 16:48 05/22/22 16:48 Labs: Laboratory Results - last 24 hr 05/22/22 05/22/22 05/22/22 12:11 12:11 16:48 WBC 7.5 RBC 3.22 L Hgb 10.5 L Hct 30.6 L MCV 95.1 MCH 32.5 MCHC 34.2 RDW 17.8 H Plt Count 140 L Neut % (Auto) 56.0 Lymph % (Auto) 33.6 [place] % (Auto) 7.1 Eos % (Auto) 2.4 Baso % (Auto) 0.9 Neut # (Auto) 4200 Lymph # (Auto) 2500 [place] # (Auto) 500 Eos # (Auto) 200 Baso # (Auto) 100 PT INR Sodium Potassium Chloride Carbon Dioxide BUN Creatinine Estimated GFR BUN/Creatinine Ratio Glucose Calcium Total Bilirubin AST ALT Alkaline Phosphatase Total Creatine Kinase CK-MB (CK-2) CK-MB (CK-2) Rel Index Troponin I Total Protein Albumin Globulin Albumin/Globulin Ratio Procalcitonin Ur Bilirubin Confirm Negative Urine RBC >100/hpf H Urine WBC 30-100/hpf H Ur Squamous Epith Cells 0-1 /hpf Ur Transition Epith Cell 0-1/hpf Urine Bacteria Few (2-10) H Ur Culture Indicated? Specimen cultured Micro UA Comment Few oval fat bodies SARS-CoV-2 (PCR) 05/22/22 05/22/22 05/22/22 16:48 16:48 16:48 WBC RBC Hgb Hct MCV MCH MCHC RDW Plt Count Neut % (Auto) Lymph % (Auto) [place] % (Auto) Eos % (Auto) Baso % (Auto) Neut # (Auto) Lymph # (Auto) [place] # (Auto) Eos # (Auto) Baso # (Auto) PT 16.3 H INR 1.4 H Sodium 140 Potassium 3.8 Chloride 107 Carbon Dioxide 23 BUN 40 H Creatinine 1.45 H Estimated GFR 37 L BUN/Creatinine Ratio 27.6 H Glucose 98 Calcium 9.3 Total Bilirubin 0.9 AST 51 H ALT 21 Alkaline Phosphatase 106 Total Creatine Kinase 28 L CK-MB (CK-2) TNP CK-MB (CK-2) Rel Index TNP Troponin I < 0.012 Total Protein 6.9 Albumin 3.2 L Globulin 3.7 Albumin/Globulin Ratio 0.9 L Procalcitonin 0.27 Ur Bilirubin Confirm Urine RBC Urine WBC Ur Squamous Epith Cells Ur Transition Epith Cell Urine Bacteria Ur Culture Indicated? Micro UA Comment SARS-CoV-2 (PCR) 05/22/22 18:55 WBC RBC Hgb Hct MCV MCH MCHC RDW Plt Count Neut % (Auto) Lymph % (Auto) [place] % (Auto) Eos % (Auto) Baso % (Auto) Neut # (Auto) Lymph # (Auto) [place] # (Auto) Eos # (Auto) Baso # (Auto) PT INR Sodium Potassium Chloride Carbon Dioxide BUN Creatinine Estimated GFR BUN/Creatinine Ratio Glucose Calcium Total Bilirubin AST ALT Alkaline Phosphatase Total Creatine Kinase CK-MB (CK-2) CK-MB (CK-2) Rel Index Troponin I Total Protein Albumin Globulin Albumin/Globulin Ratio Procalcitonin Ur Bilirubin Confirm Urine RBC Urine WBC Ur Squamous Epith Cells Ur Transition Epith Cell Urine Bacteria Ur Culture Indicated? Micro UA Comment SARS-CoV-2 (PCR) Negative PFSH Medical History Cervical stenosis of spinal canal Depression with anxiety Diabetes Falls frequently Herniated nucleus pulposus with myelopathy, cervical Hyperlipidemia Hypertension Myopathy Stable angina Surgical History History of ankle surgery History of appendectomy History of back surgery History of hysterectomy Family History Father Diabetes mellitus Liver cancer Mother Diabetes mellitus COPD (chronic obstructive pulmonary disease) Asthma Family/Other Cancer Family/Other Heart problem Social History marital status: household members: spouse Tobacco & Substance Use Smoking Status: Former smoker alcohol intake: current Assessment & Plan Assessment and plan (1) Bladder neoplasm: Status: Acute (2) Hematuria: Qualifiers: Hematuria type: gross Qualified Code(s): R31.0 - Gross hematuria Status: Acute (3) Hydronephrosis of right kidney: Status: Acute (4) Hydroureter: Status: Acute Plan 1. Schedule CYSTOSCOPY/PLACEMENT RIGHT URETERAL STENT/TRANSURETHRAL RESECTION OF BLADDER NEOPLASM. 2. Request hospitalist service assistance in correcting coagulopathy today. 3. Discussed case with acute school childcare attendant this morning. Informed her that there is significant likelihood that the right ureter or orifice will not be identified and the patient will require transfer to a facility capable placing right percutaneous nephrostomy in Interventional Radiology. Reviewed findings, discussed impression, and provided partial differential diagnosis for presenting signs and symptoms. Explained the rationale and indica tions to proceed to OR with goal of relieving right renal obstruction, confirming through histologic diagnosis bladder neoplasm and control of ongoing hematuria. Informed patient of likelihood of need for subsequent transfer to facility possessing IR capability. She had no further clarifying questions or concerns and indicates a desire to proceed today as described and discussed. Time Spent With Patient Critical Care time: I spent a total of [] minutes of critical care time on this patient's care today; this time is exclusive of procedural time.
[2022-05-23 08:07] LABS: Add Manual Diff / Slide Review NO; Basophils Absolute Auto 100 /uL (0-100); Basophils Percent Auto 1.5 % (0-2); Eosinophils Absolute Auto 300 /uL (0-450); Eosinophils Percent Auto 4.3 % (2-4); Hematocrit 32.1 % (36-46); Hemoglobin 10.9 g/dL (12.0-16.0); Lymphocytes Absolute Auto 2100 /uL (1100-4500); Lymphocytes Percent Auto 35.6 % (25-40); Mean Corpuscular HGB Conc 33.9 % (30-36); Mean Corpuscular Hemoglobin 32.5 PG (26-34); Mean Corpuscular Volume 95.8 fL (80-100); Monocytes Absolute Auto 400 /uL (0-900); Monocytes Percent Auto 6.8 % (3-14); Neutrophils Absolute Auto 3100 /uL (1500-7000); Neutrophils Percent Auto 51.8 % (50-75); Platelet Count 123 X10^3/uL (150-400); Red Blood Cell Count 3.35 X10^6/uL (4.0-5.2); Red Cell Distribution Width 17.7 % (11.6-14.8)
[2022-05-23 08:18] LABS: INR 1.3 (0.9-1.3); Prothrombin Time 14.6 SECONDS (10.1-12.7)
[2022-05-23 08:23] LABS: HEMOLYSIS < 15 (0-50); Potassium 3.7 mmol/L (3.4-5.1)
[2022-05-23 08:24] LABS: BUN Creatinine Ratio 25.7 (6-22); Blood Urea Nitrogen 38 mg/dL (7-17); Calcium 8.8 mg/dL (8.4-10.2); Carbon Dioxide 25 mmol/L (22-32); Chloride 107 mmol/L (98-107); Estimated Glomerular Filt Rate 36 mL/min (>60); Glucose 78 mg/dL (80-110); Sodium 140 mmol/L (137-145)
[2022-05-23] MEDS: SODIUM CHLORIDE 0.9% FLUSH 10 ML IV ×2 (10:56→19:45)
--- NOTE | 2022-05-23 12:14 | CM.DANOTE ---
Patient is a 76 yo female who was admitted on 05/22/22 for Blood in Urine. Pt has [facility] for insurance and her PCP is Yanet Ignacio. EMR was reviewed. Per MD, pt with hx of remote hysterectomy and has been having weekly falls and has been getting worked up as an outpt and now admitted for cystoscopy, right ureteral stent placement, bladder neoplasm. Per Urology Consult, recommending surgical intervention but high likelihood of possible need for hospital transfer for higher level of care if stent placement not successful. SW met bedside with pt and explained role and pt confirms she lives at home in [place] with her spouse and is active and independent at baseline and still drives sometimes but mostly spouse does and pt denies any DME for ambulation. Pt also denies any hx of HH or SNF. Pt has a local supportive adult Dtr and granddtr who can assist if needed at d/c. Pt does not anticipate any d/c needs at this time but willing to consider pending her surgical intervention later today. Pt confirms she is established with Neurologist in [facility] Dr. Bosch, getting established with Urologist Dr. Larson and has Flooring Machine Feeder Dr. Vogt at baseline. Plan: SW to follow closely for surgical intervention with Urologist later today to determine if stent placement successful or if drain needs to be placed vs hospital transfer for higher level of care. SW to follow for any identified discharge planning needs. JANINE Centeno Discharge Planning/Care Management Advanced directive, confirm from FAMILY Start: 05/22/22 21:12 Freq: Q24H Status: Active Protocol: Document 05/23/22 07:00 LDV (Rec: 05/23/22 11:17 LDV [id number]) Advance Directive, confirm on record Time 10:00 Person contacted patient Copy received No CM Discharge Assessment Start: 05/23/22 12:11 Freq: Status: Active Protocol: Document 05/23/22 12:11 BF (Rec: 05/23/22 12:14 BF [id number]) Discharge Planning Assessment Assigned Grinding Machine Tender JANINE Hunter DPOA/Assigned Designee Name Spouse Maico and adult Dtr Contact Information [phone] Advance Directives? Yes Advance Directives on File No History Provided By Patient,Medical Record Has Patient been admitted in last 30 No days? Prior Living Arrangements House Household Members spouse Type of transporation used prior to Drives own vehicle admit Independent with ADL's Yes Is patient alert and oriented? Yes Caregiver for Another No: has local granddtr she sees Barriers to Discharge No Comment Pending stent surgery and possible need for hospital transfer Discharge Plan Home Community Services Home Health Nurse Transportation Arrangement Spouse or adult Dtr can provide transport home if pt doesn't need hospital transfer Referrals Initiated None needed Additional Comment Follow to r/o HH RN if pt has new wound or drain to manage Whiteboard Updated in Patient Room with Yes name and ext. # of Grinding Machine Tender Review Status In Process Please Provide Date Initial DC 05/23/22 Assessment Was Performed Next Review Type Continued Stay Review
[2022-05-23] MEDS: LACTATED RINGERS 1,000 ML 21 ML IV (15:58)
--- NOTE | 2022-05-23 16:25 | PM.PREOP ---
Pre-operative Note COVID-19 Criteria for continued procedure: Expected advancement of disease process, Possibility delay results in more complex future surgery or treatment, Increased loss of function, Continuing or worsening of significant or severe pain, Deterioration of the patient's condition or overall health, Delay expected to result in less-positive ultimate med/surg outcome and Non-surgical alternatives not available or appropriate per current SOC Interval Note History & Physical reviewed/Exam performed by Physician: Yes Changes to H&P: No
[2022-05-23] MEDS: CEFAZOLIN 2 GM/100 ML PREMIX 100 ML IV (16:40)
--- NOTE | 2022-05-23 16:48 | SUR.OPER ---
Lithotomy on padded OR bed, head on pillow, arms secured on padded arm boards at <90 degrees abduction. Legs secured in padded yellow fins stirrups.
[2022-05-23] MEDS: WATER FOR INJECTION,STERILE 20 ML, mitoMYcin 20 MG INTRAVESIC (17:24)
--- NOTE | 2022-05-23 17:42 | P.OP_ITS ---
Operative Date/Time/Diagnoses Date of procedure: 05/23/22 Time of procedure: 17:30 Pre-op diagnosis: 1. Bladder neoplasm. 2. Right hydroureteronephrosis. 3. Gross hematuria Post-op diagnosis: same Procedure & Clinicians Procedure: 1. Cystoscopy/Transurethral resection of bladder tumor (2-5 cm). 2. Cystoscopy/installation mitomycin-C (20 mg). Same procedure as scheduled: No (Could not locate right ureteral orifice due to tumor obliteration.) Indications: 1. Bladder neoplasm. 2. Right hydroureteronephrosis. 3. Gross hematuria. Surgeon: Miguelangel Pickard Click Yes if Unassisted: Yes Anesthesia Type: General Operative Notes Findings: 1. Urethra and normal caliber without obstruction or lesion. 2. Mixed solid and spreading papillary neoplasm from a point just medial of left ureteral orifice to the lower portion of the right lateral bladder wall and then anteriorly to about 10:00 a.m. the central more nodular and exophytic portion of the tumor was centered more less right on the expected position of the right ureteral orifice. A meticulous and careful inspection was undertaken with a cystoscope and then with the resectoscope under continuous flow with use of the resecting loop to try and manipulate the margins of the tumor to identify the orifice. A 0.35 hybrid guidewire was used through the working channel of the cystoscope in an attempt to ?probe? and orifice into the say the base of the exophytic/solid portion of the tumor of the right trigone and right ureteric ridge. Additional somewhat extensive spreading superficial neoplastic changes of the urothelium were seen more posterior along the lateral wall and floor of the right bladder. Closure Type: not applicable Specimen(s): other (Bladder tumor resection chips) Applied: catheter ([address] catheter.) Estimated Blood Loss (mL): 5 Blood products transfused: none Procedure in detail: The patient was positioned in supine was administered general anesthesia. She was then repositioned in semi-lithotomy and the lower abdomen, genitalia, and groin were then prepped and draped in sterile fashion. The 22 [place] panendoscope was then passed lower urinary tract with the findings as described above. A 0.35 hybrid guidewire was then used to try and identify and ?probe? a ureteral orifice in an attempt to position a right ureteral stent pre resection. These efforts were fruitless and were subsequently abandoned. Panendoscope was then removed after filling the bladder partially. The resectoscope was then advanced into the bladder under direct visualization and was then fitted with the thin caliber resecting loop. Careful resection the main portion of the neoplasm was undertaken and continual vigilance to identify an orifice or perhaps a urothelial lined area indicating a resected portion of the distal ureter was conducted. Resection was clearly taken into muscular fibers. Complete tumor resection could not be assured visually especially in the vicinity of the distal right trigone between that location the bladder neck. All resected TUR chips were collected and submitted to pathology for routine gross and microscopic examination. Hemostasis was attained with the electrocautery loop. The bladder was then left partially filled and the resectoscope was removed. A 22 [place] Barriga catheter was then inserted, the balloon inflated 10 cc, and the bladder contents drained. A 20 cc solution containing 20 mg mitomycin C were then instilled in the bladder via the catheter and a catheter plug was placed for anticipated 2 hour postoperative retention. The patient was then repositioned in supine, was awakened, transferred to [facility], and then transported recovery in stable condition. Complications: none Post-operative Condition: stable Disposition: PACU Plan for aftercare: 1. Admit to acute care-hospitalist service. 2. The patient will require either direct transfer to a facility with interventional radiology capabilities or discharge from [facility] when medically cleared with subsequent outpatient arrangements for placement of right percutaneous nephrostomy tube.
[2022-05-23] MEDS: LACTATED RINGERS 1,000 ML 125 ML IV (19:44)
[2022-05-23] MEDS: ISOSORBIDE DINITRATE 10 MG TABLET PO (20:02)
[2022-05-23] MEDS: ACETAMINOPHEN 325 MG TABLET 650 MG PO (20:02)
[2022-05-23] MEDS: PANTOPRAZOLE DR 20 MG TABLET PO (20:02)
--- NOTE | 2022-05-23 22:25 | PC.NURSE ---
Addendum entered by Adrienne Brambila R.N. 05/24/22 07:03: 0600 UOP has only been 175cc this shift. Dr Pickard informed and order received for a 1000cc NS bolus which is currently infusing. Original Note: Patient is alert and oriented. Breath sounds CTA with RA sat of 96%; on continuous oximetry. HRR. BP elevated at 179/58 but improved from earlier readings of 190's/70. Denies nausea. BT present and abdomen is soft/non-tender. Indwelling catheter is patent; hematuria. Is able to move herself in bed and gets up with walker and SBA. Wearing bilateral calf SCD's. Did complain earlier of pain due to catheter so was medicated with Tylenol and declines any further intervention. Fall risk score is high so bed alarm is activated. On chemo isolation due to chemo being instilled into bladder during earlier surgery.
[2022-05-23] MEDS: TRAMADOL 50 MG TABLET PO (23:14)
[2022-05-24] VITALS: BP 163/74; PULSE 74; RESP 18; TEMP 36.5; O2SAT 98
[2022-05-24] MEDS: LACTATED RINGERS 1,000 ML 125 ML IV ×2 (03:27→11:51)
[2022-05-24 04:00] VITALS: BP 140/56; PULSE 69; RESP 18; TEMP 36.4; O2SAT 97
[2022-05-24] MEDS: LEVOTHYROXINE 50 MCG TABLET PO (05:49)
[2022-05-24] MEDS: SODIUM CHLORIDE 0.9% 1,000 ML 1000 ML IV (06:10)
--- NOTE | 2022-05-24 07:46 | PM.PN.1 ---
Subjective Subjective Date Patient Seen: 05/24/22 Interval history: Patient's at bedside. Lots of questions were answered concerning new diagnosis of bladder cancer. Patient notes some bilateral flank pain and suprapubic pain more noticeably after eating. Exam Vital Signs (past 8 hours): - 05/24/22 00:00 05/24/22 04:00 Temperature 97.7 F 97.6 F Pulse Rate 74 69 Respiratory Rate 18 18 Blood Pressure 163/74 H 140/56 L Pulse Oximetry 98 97 Oxygen Flow Rate 0 0 Oxygen Delivery Method Room Air Oxygen Flow Rate 0 Narrative Exam Narrative: GEN: no acute distress, thin female HEENT: moist mucous membranes, PERRL NECK: trachea midline, no JVD CV: regular rate and rhythm, no murmurs PULM: clear bilaterally ABD: soft, mild tenderness of suprapubic and flanks, nondistended, no organomegaly, bloody urine in aburto bag EXT: warm and well perfused with no edema NEURO: awake, alert, oriented, no focal deficits Objective Labs Result Diagrams: 05/24/22 08:24 05/24/22 05:00 Labs: Laboratory Results - last 24 hr 05/23/22 05/23/22 05/23/22 07:48 07:48 07:48 WBC 6.0 RBC 3.35 L Hgb 10.9 L Hct 32.1 L MCV 95.8 MCH 32.5 MCHC 33.9 RDW 17.7 H Plt Count 123 L Neut % (Auto) 51.8 Lymph % (Auto) 35.6 [place] % (Auto) 6.8 Eos % (Auto) 4.3 H Baso % (Auto) 1.5 Neut # (Auto) 3100 Lymph # (Auto) 2100 [place] # (Auto) 400 Eos # (Auto) 300 Baso # (Auto) 100 PT 14.6 H INR 1.3 Sodium 140 Potassium 3.7 Chloride 107 Carbon Dioxide 25 BUN 38 H Creatinine 1.48 H Estimated GFR 36 L BUN/Creatinine Ratio 25.7 H Glucose 78 L Calcium 8.8 PFSH Medical History Cervical stenosis of spinal canal Depression with anxiety Diabetes Falls frequently Herniated nucleus pulposus with myelopathy, cervical Hyperlipidemia Hypertension Myopathy Stable angina Surgical History History of ankle surgery History of appendectomy History of back surgery History of hysterectomy Family History Father Diabetes mellitus Liver cancer Mother Diabetes mellitus COPD (chronic obstructive pulmonary disease) Asthma Family/Other Cancer Family/Other Heart problem Social History marital status: household members: spouse Smoking Status: Former smoker alcohol intake: current Assessment & Plan Assessment & Plan narrative: 1. Bladder neoplasm, acute, with suprapubic abd pain, hematuria, acute, present on admission -patient presented with hematuria and clots -05/22 CT abd pelvis: findings are highly concerning for right-sided bladder neoplasm, with associated obstruction of the right renal collecting system.? There is Severe right-sided hydroureter and hydronephrosis. -Dr. Pickard took for cystoscopy on 05/[address] stent in right ureter, biopsy taken of mass and injected with chemo -attempting to setup outpatient nephrostomy tube placement with [place] [facility] -repeat CT on 05/24 with unchanged severe right hydronephrosis, decompressed 2.Severe right-sided hydroureter and hydronephrosis, acute, resulting in UTI, acute, present on admission -U/A positive RBC, WBC-culture pending, blood cultures pending -Rocephin 1g x3 days -antiemetic and pain management 3. Supratheraputic INR, acute, present on admission -PT16.3/INR1.4 -Vit K given, INR now 1.3 4. HTN, acute, present on admission -In Ed 218/81- resolved -on admit 140/89 -pt does not require medication management of her blood pressure 5. Malnutrition, moderate, acute on chronic, present on admission -dietary consult ordered, to asses and assist with caloric intake -malnutrition may be a sign of malignancy as 50 lb wt loss in past 6 months, it will impair healing, and impact illness recovery, increase complications & poor health out comes. Code status:Full Surrogate decision maker: jay mahoney spouse COVID PCR:Negative DVT/VTE prophylaxis:held medications for possible surgery, SCD's only Disposition: Pending arrangement of outpatient IR nephrostomy tube placement. Time Spent With Patient Critical Care time: I spent a total of [] minutes of critical care time on this patient's care today; this time is exclusive of procedural time. Quality VTE Deep Vein Thrombosis/Pulmonary Embolism Present on Admission: No
[2022-05-24 08:58] LABS: Add Manual Diff / Slide Review NO; Basophils Absolute Auto 100 /uL (0-100); Eosinophils Absolute Auto 200 /uL (0-450); Eosinophils Percent Auto 2.3 % (2-4); Hematocrit 30.1 % (36-46); Hemoglobin 10.1 g/dL (12.0-16.0); Lymphocytes Absolute Auto 2300 /uL (1100-4500); Lymphocytes Percent Auto 30.4 % (25-40); Mean Corpuscular HGB Conc 33.5 % (30-36); Mean Corpuscular Hemoglobin 32.5 PG (26-34); Mean Corpuscular Volume 96.8 fL (80-100); Monocytes Absolute Auto 400 /uL (0-900); Monocytes Percent Auto 5.6 % (3-14); Neutrophils Absolute Auto 4600 /uL (1500-7000); Neutrophils Percent Auto 60.7 % (50-75); Platelet Count 132 X10^3/uL (150-400); Red Blood Cell Count 3.11 X10^6/uL (4.0-5.2); Red Cell Distribution Width 17.7 % (11.6-14.8); White Blood Cell Count 7.6 X10^3/uL (4.5-11.0)
[2022-05-24 09:04] VITALS: BP 161/79; PULSE 66; RESP 18; TEMP 36.3; O2SAT 98
[2022-05-24 09:08] LABS: BUN Creatinine Ratio 23.8 (6-22); Blood Urea Nitrogen 31 mg/dL (7-17); Calcium 7.9 mg/dL (8.4-10.2); Carbon Dioxide 20 mmol/L (22-32); Chloride 109 mmol/L (98-107); Estimated Glomerular Filt Rate 42 mL/min (>60); Glucose 63 mg/dL (80-110); HEMOLYSIS < 15 (0-50); Potassium 3.7 mmol/L (3.4-5.1); Sodium 139 mmol/L (137-145)
[2022-05-24] MEDS: PANTOPRAZOLE DR 20 MG TABLET PO (09:38)
[2022-05-24] MEDS: ISOSORBIDE DINITRATE 10 MG TABLET PO (09:39)
[2022-05-24] MEDS: AMLODIPINE 5 MG TABLET 2.5 MG PO (09:39)
[2022-05-24 12:00] VITALS: BP 136/46; PULSE 65; RESP 17; TEMP 36.6; O2SAT 99
--- NOTE | 2022-05-24 12:27 | DI.CT.S_ITS ---
PROCEDURE: CT KIDNEY URETER BLADDER (KUB) INDICATIONS: assess post partial bladder tumor resection, degree of hydro TECHNIQUE: Axial sections were acquired from the lung bases to the pubic symphysis. Coronal and sagittal reformats were performed. For radiation dose reduction, the following was used: automated exposure control, adjustment of mA and/or kV according to patient size. COMPARISON: [facility], CT, CT ABDOMEN PELVIS WO CON, 05/22/2022, 15:48. FINDINGS: Image quality: Excellent. Lung bases: There is a nodular density in the left lower lobe, which was not present on the last exam dated 05/22/2022, probably inflammatory in nature or caused by an artifact. Heart: No significant findings. URINARY: Right Kidney: Severe hydronephrosis appears unchanged. Calcifications in renal hilum are likely vascular in nature. Right Ureter: Moderate hydroureter. No ureteral stones Left Kidney: Mild hydronephrosis comminution. Calcifications in left kidney are likely vascular in nature. There is a 3 cm exophytic low-density nodule in the inferior pole of the left kidney, compatible with a cyst. Left Ureter: Trace ureterectasis, new. Bladder: There is a Barriga catheter within the bladder. Bladder is contracted. Bladder wall is thickened. No stones. ABDOMEN: Liver: Liver demonstrates nodular contour consistent with cirrhosis. Moderate amount of ascites around the liver. Gallbladder: There are gallstones Biliary ducts: Unremarkable. Pancreas: Unremarkable. Spleen: Unremarkable. Adrenal Glands: Unremarkable. Stomach and Bowel: Stomach, small bowel loops, and colon are suboptimally visualized due to lack of intravenous or IV contrast. No findings to suggest bowel obstruction. Diverticulosis. No acute diverticulitis. Peritoneum: There is moderate amount of intraperitoneal fluid. No free air. Ventral Wall: No hernia. Abdominal Nodes: No enlarged retroperitoneal or mesenteric lymph nodes. Vessels: Aorta and inferior vena cava are normal in size. Severe atherosclerotic calcifications. PELVIS: Pelvic Organs: Unremarkable. Pelvic Nodes: Unremarkable. Miscellaneous: No inguinal hernias are seen. Bones: Mild levoscoliosis. Moderate degenerative disc disease in lower lumbar spine causing [id number] central canal stenosis. There is a hemangioma in the right side of L3. Right hemilaminectomy at L3-L4 and L4-L5. IMPRESSION: 1. Severe right hydronephrosis appears unchanged. 2. Mild left hydronephrosis is new. 3. 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 Bladder is contracted with a Barriga catheter. 4. Cirrhosis. 5. Moderate amount of ascites. 6. Cholelithiasis. Dictated by: Nina Haynes M.D. on 05/24/2022 at 14:00 Approved by: Nina Haynes M.D. on 05/24/2022 at 14:11
[2022-05-24 18:00] VITALS: BP 150/42; PULSE 69; RESP 15; TEMP 36.5; O2SAT 98
[2022-05-24 20:00] VITALS: BP 115/63; PULSE 64; RESP 18; TEMP 36.7; O2SAT 98
[2022-05-24] MEDS: MELATONIN 3 MG TABLET 6 MG PO (21:47)
[2022-05-25 04:15] VITALS: BP 137/47; PULSE 73; RESP 18; TEMP 36.8; O2SAT 97
[2022-05-25] MEDS: LEVOTHYROXINE 50 MCG TABLET PO (06:11)
--- NOTE | 2022-05-25 07:15 | P.PN_ITS ---
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 She is been drinking water but did not feel hungry last evening. She denies any significant pain. Denies nausea or vomiting. Exam Vital Signs (past 8 hours): - 05/25/22 04:15 Temperature 98.3 F Pulse Rate 73 Respiratory Rate 18 Blood Pressure 137/47 L Pulse Oximetry 97 Oxygen Flow Rate 0 Oxygen Delivery Method Room Air Oxygen Flow Rate 0 Narrative Exam Narrative: Sleeping in bed and was awakened. She is in no distress. Abdomen-soft with mild tenderness suprapubically. No guarding or rebound. Barriga-light maroon output without clots. Objective Labs Result Diagrams: 05/24/22 08:24 05/24/22 05:00 Labs: Laboratory Results - last 24 hr 05/24/22 05/24/22 05:00 08:24 WBC 7.6 RBC 3.11 L Hgb 10.1 L Hct 30.1 L MCV 96.8 MCH 32.5 MCHC 33.5 RDW 17.7 H Plt Count 132 L Neut % (Auto) 60.7 Lymph % (Auto) 30.4 [place] % (Auto) 5.6 Eos % (Auto) 2.3 Baso % (Auto) 1.0 Neut # (Auto) 4600 Lymph # (Auto) 2300 [place] # (Auto) 400 Eos # (Auto) 200 Baso # (Auto) 100 Sodium 139 Potassium 3.7 Chloride 109 H Carbon Dioxide 20 L BUN 31 H Creatinine 1.30 H Estimated GFR 42 L BUN/Creatinine Ratio 23.8 H Glucose 63 L Calcium 7.9 L PFSH Medical History Cervical stenosis of spinal canal Depression with anxiety Diabetes Falls frequently Herniated nucleus pulposus with myelopathy, cervical Hyperlipidemia Hypertension Myopathy Stable angina Surgical History History of ankle surgery History of appendectomy History of back surgery History of hysterectomy Family History Father Diabetes mellitus Liver cancer Mother Diabetes mellitus COPD (chronic obstructive pulmonary disease) Asthma Family/Other Cancer Family/Other Heart problem Social History marital status: household members: spouse Smoking Status: Former smoker alcohol intake: current Assessment & Plan Assessment & Plan narrative: Assessment: 1. Stable postop day 1 status post TURBT for bladder neoplasm. 2. Right hydronephrosis secondary to obstructing neoplasm located in the [place] of the right bladder floor, bladder neck, and right lateral wall. 3. Patient is receiving 1 L saline bolus due to declining urine output during the night of approximately 175 cc per shift. 4. Pathology pending. Plan: 1. Bladder scan patient-rule out clot obstruction of catheter. 2. Coordinate arrangements for placement right percutaneous nephrostomy/right antegrade ureteral stent. 3. Pathology will be discussed when final in outpatient setting. 4. Patient has appointment scheduling pending in Urology Clinic in approximately 10 days for supervised voiding trial. Time Spent With Patient Critical Care time: I spent a total of [] minutes of critical care time on this patient's care today; this time is exclusive of procedural time. Quality VTE Deep Vein Thrombosis/Pulmonary Embolism Present on Admission: No
[2022-05-25 07:20] LABS: Add Manual Diff / Slide Review NO; Basophils Absolute Auto 0 /uL (0-100); Basophils Percent Auto 0.6 % (0-2); Eosinophils Absolute Auto 200 /uL (0-450); Eosinophils Percent Auto 2.8 % (2-4); Hematocrit 28.3 % (36-46); Hemoglobin 9.8 g/dL (12.0-16.0); Lymphocytes Absolute Auto 2000 /uL (1100-4500); Lymphocytes Percent Auto 26.8 % (25-40); Mean Corpuscular HGB Conc 34.6 % (30-36); Mean Corpuscular Hemoglobin 33.3 PG (26-34); Mean Corpuscular Volume 96.2 fL (80-100); Monocytes Absolute Auto 600 /uL (0-900); Monocytes Percent Auto 8.1 % (3-14); Neutrophils Absolute Auto 4500 /uL (1500-7000); Neutrophils Percent Auto 61.7 % (50-75); Platelet Count 117 X10^3/uL (150-400); Red Blood Cell Count 2.95 X10^6/uL (4.0-5.2); Red Cell Distribution Width 17.8 % (11.6-14.8); White Blood Cell Count 7.3 X10^3/uL (4.5-11.0)
--- NOTE | 2022-05-25 07:20 | PM.PN.1 ---
Subjective Subjective Date Patient Seen: 05/25/22 Time Patient Seen: 07:00 Interval history: Imelda is postoperative day 2 status post TURBT and installation mitomycin-C. Ureteral orifice was not identified pre resection or during resection. Noncontrast CT performed postoperatively yesterday again demonstrates ascites and right hydroureteronephrosis to level of bladder. Bladder is decompressed. The patient is tolerating p.o. diet and denies pain. She is taking fluids liberally. Logistical arrangements are pending for placement of right percutaneous nephrostomy/antegrade ureteral stent. Exam Vital Signs (past 8 hours): - 05/25/22 04:15 Temperature 98.3 F Pulse Rate 73 Respiratory Rate 18 Blood Pressure 137/47 L Pulse Oximetry 97 Oxygen Flow Rate 0 Oxygen Delivery Method Room Air Oxygen Flow Rate 0 Narrative Exam Narrative: She is awakened from sleep. Denies interval complaints or pain. She continues to tolerate p.o. well though appetite is reportedly small. Abdomen-soft and nontender. Barriga-clear, straw-colored output. Objective Labs Result Diagrams: 05/24/22 08:24 05/24/22 05:00 Labs: Laboratory Results - last 24 hr 05/24/22 05/24/22 05:00 08:24 WBC 7.6 RBC 3.11 L Hgb 10.1 L Hct 30.1 L MCV 96.8 MCH 32.5 MCHC 33.5 RDW 17.7 H Plt Count 132 L Neut % (Auto) 60.7 Lymph % (Auto) 30.4 [place] % (Auto) 5.6 Eos % (Auto) 2.3 Baso % (Auto) 1.0 Neut # (Auto) 4600 Lymph # (Auto) 2300 [place] # (Auto) 400 Eos # (Auto) 200 Baso # (Auto) 100 Sodium 139 Potassium 3.7 Chloride 109 H Carbon Dioxide 20 L BUN 31 H Creatinine 1.30 H Estimated GFR 42 L BUN/Creatinine Ratio 23.8 H Glucose 63 L Calcium 7.9 L PFSH Medical History Cervical stenosis of spinal canal Depression with anxiety Diabetes Falls frequently Herniated nucleus pulposus with myelopathy, cervical Hyperlipidemia Hypertension Myopathy Stable angina Surgical History History of ankle surgery History of appendectomy History of back surgery History of hysterectomy Family History Father Diabetes mellitus Liver cancer Mother Diabetes mellitus COPD (chronic obstructive pulmonary disease) Asthma Family/Other Cancer Family/Other Heart problem Social History marital status: household members: spouse Smoking Status: Former smoker alcohol intake: current Assessment & Plan Assessment & Plan narrative: Assessment: 1. Stable postop day 2 status post TURBT. 2. Right hydronephrosis due to obstruction at level of bladder. 3. Pathology pending. Plan: 1. Logistics and coordination for placement of right percutaneous nephrostomy/antegrade ureteral stent and nearby institution with IR capabilities pending. 2. Pathology will be reviewed and discussed in outpatient setting when final. 3. Patient is to follow-up in the Urology Clinic in approximately 10 days for supervised catheter removal and review of pathology. Time Spent With Patient Critical Care time: I spent a total of [] minutes of critical care time on this patient's care today; this time is exclusive of procedural time. Quality VTE Deep Vein Thrombosis/Pulmonary Embolism Present on Admission: No
[2022-05-25 07:35] LABS: BUN Creatinine Ratio 15.9 (6-22); Blood Urea Nitrogen 28 mg/dL (7-17); Calcium 8.1 mg/dL (8.4-10.2); Carbon Dioxide 21 mmol/L (22-32); Chloride 109 mmol/L (98-107); Estimated Glomerular Filt Rate 29 mL/min (>60); Glucose 121 mg/dL (80-110); HEMOLYSIS < 15 (0-50); Potassium 3.9 mmol/L (3.4-5.1); Sodium 137 mmol/L (137-145)
--- NOTE | 2022-05-25 08:17 | PM.PN.1 ---
Exam Vital Signs (past 8 hours): - 05/25/22 04:15 Temperature 98.3 F Pulse Rate 73 Respiratory Rate 18 Blood Pressure 137/47 L Pulse Oximetry 97 Oxygen Flow Rate 0 Oxygen Delivery Method Room Air Oxygen Flow Rate 0 Narrative Exam Narrative: GEN: no acute distress, thin female HEENT: moist mucous membranes, PERRL NECK: trachea midline, no JVD CV: regular rate and rhythm, no murmurs PULM: clear bilaterally ABD: soft, mild tenderness of suprapubic and flanks, nondistended, no organomegaly, bloody urine in aburto bag EXT: warm and well perfused with no edema NEURO: awake, alert, oriented, no focal deficits Objective Labs Result Diagrams: 05/25/22 07:01 05/25/22 07:01 Labs: Laboratory Results - last 24 hr 05/24/22 05/24/22 05/25/22 05:00 08:24 07:01 WBC 7.6 7.3 RBC 3.11 L 2.95 L Hgb 10.1 L 9.8 L Hct 30.1 L 28.3 L MCV 96.8 96.2 MCH 32.5 33.3 MCHC 33.5 34.6 RDW 17.7 H 17.8 H Plt Count 132 L 117 L Neut % (Auto) 60.7 61.7 Lymph % (Auto) 30.4 26.8 [place] % (Auto) 5.6 8.1 Eos % (Auto) 2.3 2.8 Baso % (Auto) 1.0 0.6 Neut # (Auto) 4600 4500 Lymph # (Auto) 2300 2000 [place] # (Auto) 400 600 Eos # (Auto) 200 200 Baso # (Auto) 100 0 Sodium 139 Potassium 3.7 Chloride 109 H Carbon Dioxide 20 L BUN 31 H Creatinine 1.30 H Estimated GFR 42 L BUN/Creatinine Ratio 23.8 H Glucose 63 L Calcium 7.9 L 05/25/22 07:01 WBC RBC Hgb Hct MCV MCH MCHC RDW Plt Count Neut % (Auto) Lymph % (Auto) [place] % (Auto) Eos % (Auto) Baso % (Auto) Neut # (Auto) Lymph # (Auto) [place] # (Auto) Eos # (Auto) Baso # (Auto) Sodium 137 Potassium 3.9 Chloride 109 H Carbon Dioxide 21 L BUN 28 H Creatinine 1.76 H Estimated GFR 29 L BUN/Creatinine Ratio 15.9 Glucose 121 H Calcium 8.1 L [facility] Medical History Cervical stenosis of spinal canal Depression with anxiety Diabetes Falls frequently Herniated nucleus pulposus with myelopathy, cervical Hyperlipidemia Hypertension Myopathy Stable angina Surgical History History of ankle surgery History of appendectomy History of back surgery History of hysterectomy Family History Father Diabetes mellitus Liver cancer Mother Diabetes mellitus COPD (chronic obstructive pulmonary disease) Asthma Family/Other Cancer Family/Other Heart problem Social History marital status: household members: spouse Smoking Status: Former smoker alcohol intake: current Assessment & Plan Assessment & Plan narrative: 1. Bladder neoplasm, acute, with suprapubic abd pain, hematuria, acute, present on admission -patient presented with hematuria and clots -05/22 CT abd pelvis: findings are highly concerning for right-sided bladder neoplasm, with associated obstruction of the right renal collecting system.? There is Severe right-sided hydroureter and hydronephrosis. -Dr. Pickard took for cystoscopy on 05/[address] stent in right ureter, biopsy taken of mass and injected with chemo -attempting to setup outpatient nephrostomy tube placement with [facility] [facility] -repeat CT on 05/24 with unchanged severe right hydronephrosis, decompressed 2.Severe right-sided hydroureter and hydronephrosis, acute, resulting in UTI, acute, present on admission -U/A positive RBC, WBC-culture pending, blood cultures pending -Rocephin 1g x3 days -antiemetic and pain management 3. Supratheraputic INR, acute, present on admission -PT16.3/INR1.4 -Vit K given, INR now 1.3 4. HTN, acute, present on admission -In Ed 218/81- resolved -on admit 140/89 -pt does not require medication management of her blood pressure 5. Malnutrition, moderate, acute on chronic, present on admission -dietary consult ordered, to asses and assist with caloric intake -malnutrition may be a sign of malignancy as 50 lb wt loss in past 6 months, it will impair healing, and impact illness recovery, increase complications & poor health out comes. Code status:Full Surrogate decision maker: jay mahoney spouse COVID PCR:Negative DVT/VTE prophylaxis:held medications for possible surgery, SCD's only Disposition: Pending arrangement of outpatient IR nephrostomy tube placement. Time Spent With Patient Critical Care time: I spent a total of [] minutes of critical care time on this patient's care today; this time is exclusive of procedural time. Quality VTE Deep Vein Thrombosis/Pulmonary Embolism Present on Admission: No
[2022-05-25 08:50] VITALS: BP 144/54; PULSE 70; RESP 20; TEMP 36.7; O2SAT 97
[2022-05-25] MEDS: PANTOPRAZOLE DR 20 MG TABLET PO (09:21)
[2022-05-25] MEDS: TRAMADOL 50 MG TABLET PO (09:33)
[2022-05-25 12:00] VITALS: BP 137/55; PULSE 72; RESP 18; TEMP 36.9; O2SAT 97
[2022-05-25] MEDS: VANCOMYCIN 750 MG/150 ML PIGGYBACK 150 MG IV (12:18)
[2022-05-25] MEDS: ACETAMINOPHEN 325 MG TABLET 650 MG PO (13:45)
--- NOTE | 2022-05-25 15:14 | CM.DPNOTE ---
DC Note Discharge today, w/spouse and family to assist as needed. Outpatient procedure -placement of right percutaneous nephrostomy/antegrade ureteral stent scheduled for tomorrow at [facility] Interventional Radiology Dr Soto pleased with this and so patient discharged with close outpatient f/u No additional needs from this CM team identified JW
--- NOTE | 2022-05-25 15:32 | P.DS_ITS ---
History of Present Illness History of Present Illness Date Patient Seen: 05/25/22 Time Patient Seen: 21:30 Chief complaint: blood in urine Narrative: Imelda Weiss is a 76-year-old female with a hx of afib, HTN, Insulin diabetes, who has had a reported intention 50lb weight loss over the past year-allowing her to come off all her medication. Who presented to the emergency department complaining of hematuria, dysuria, urinary frequency and urgency and states that she has abd pain after eating.? Was seen in [facility] a few days ago she had a pelvic ultrasound , and was advised they found no issues.? History of kidney stones, is pending a new patient appointment with Dr. Larson and is a previous patient of Dr. Cisneros.? Chronic low energy for several months. In ED she c/o pain everywhere at baseline, reports urine has a large amount of blood in it.?She complains of abdominal distention, bloating and feeling generalized pain, without focal tenderness.? He denies any vaginal discharge On admit she denied fevers, chills, back pain, abd pain, nausea, vomiting, body aches, flank pain, has been up to urinate multiple times on the floor without hematuria, dysuria, urinary frequency and urgency. She has been having episodes of hypogycemia. Her director selection and administration is Dr. Vogt, states that she saw him recently and she does not have any new problems.?Patient had elevated B/P in the ED 218/81. On admit v/s stable 97.1, 140/89,87,18, 97% on Rm Air. NO WBC or left shift, procal-neg, The following labs are at base line H/H 10.5/30.6,, PLT 140, BUN 40, BRAKE OPERATOR SHEET METAL.1.45, GFR 37. Trop-neg, Albumin 3.2 ABD/Pelvis CT:findings are highly concerning for right-sided bladder neoplasm, with associated obstruction of the right renal collecting system.? There is severe right-sided hydroureter and hydronephrosis. Patient admitted for Bladder neoplasm, UTI, Hematuria, HTN urgency. [facility] to Consult Discharge Providers Provider Date of admission: 05/22/22 18:10 Discharge Date: 05/25/22 Primary care physician: Dr. Chris MD Consults: 05/22/22 16:53 Consult to Urology Stat Comment: Consulting Provider: Miguelangel Pickard Reason for consultation: bladder neoplasm, hematuria Has provider been notified: Yes 05/22/22 18:13 Consult to Urology Stat Comment: Consulting Provider: Miguelangel Pickard Reason for consultation: hematuria, bladder cancer w/ hydronephrosis 05/23/22 07:50 Consult to Anesthesiology Routine Comment: Consulting Provider: Anesthesiologist Reason for consultation: Pre op medications Has provider been notified: No Discharge provider: Emmanuel Soto DO Summary Hospital Course Discharge Diagnosis: 1. Bladder neoplasm, acute, with suprapubic abd pain, hematuria, acute, present on admission -patient presented with hematuria and clots -05/22 CT abd pelvis: findings are highly concerning for right-sided bladder neoplasm, with associated obstruction of the right renal collecting system.? There is Severe right-sided hydroureter and hydronephrosis. -Dr. 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 No LN involvement. 2.Severe right-sided hydroureter and hydronephrosis, acute, resulting in UTI, acute, present on admission -U/A positive RBC, WBC-culture grew Corynebacterium urealyticum, blood cultures neg -given one dose of IV vanc -antiemetic and pain management 3. Supratheraputic INR likely due to liver cirrhosis, acute, present on admission, resolved -PT16.3/INR1.4 -Vit K given, INR now 1.3 -patient notes she has fatty liver, ascites present on CT abd -check hepatitis panel 4. HTN, acute, present on admission -In Ed 218/81- resolved -on admit 140/89 -pt does not require medication management of her blood pressure 5. Malnutrition, moderate, acute on chronic, present on admission -dietary consult ordered, to asses and assist with caloric intake -malnutrition may be a sign of malignancy as 50 lb wt loss in past 6 months, it will impair healing, and impact illness recovery, increase complications & poor health out comes. Hospital Course: Patient admitted for acute hematuria and CT abd pelvis showed bladder tumor causing right-sided severe hydronephrosis. Dr. Pickard urology attempted to place stent but unsuccessful due to no ureteral orifice present due to tumor. Biopsies taken of tumor which returned as high grade papillary carcinoma. Patient was scheduled for outpatient IR guided nephrostomy tube placement at [facility] on 05/26. She will f/u with [facility] to go over these results and di scuss possible oncology referral. Time Spent with Patient Time spent: Greater than 30 minutes Exam Vital Signs (past 8 hours): - 05/25/22 08:50 05/25/22 12:00 Temperature 98.1 F 98.5 F Pulse Rate 70 72 Respiratory Rate 20 18 Blood Pressure 144/54 H 137/55 L Pulse Oximetry 97 97 Oxygen Flow Rate 0 0 Oxygen Delivery Method Room Air Oxygen Flow Rate 0 Narrative Exam Narrative: GEN: no acute distress, thin female HEENT: moist mucous membranes, PERRL NECK: trachea midline, no JVD CV: regular rate and rhythm, no murmurs PULM: clear bilaterally ABD: soft, mild tenderness of suprapubic and flanks, nondistended, no organomegaly, bloody urine in aburto bag EXT: warm and well perfused with no edema NEURO: awake, alert, oriented, no focal deficits Objective Labs Result Diagrams: 05/25/22 07:01 05/25/22 07:01 Labs: Laboratory Results - last 24 hr 05/25/22 05/25/22 07:01 07:01 WBC 7.3 RBC 2.95 L Hgb 9.8 L Hct 28.3 L MCV 96.2 MCH 33.3 MCHC 34.6 RDW 17.8 H Plt Count 117 L Neut % (Auto) 61.7 Lymph % (Auto) 26.8 [place] % (Auto) 8.1 Eos % (Auto) 2.8 Baso % (Auto) 0.6 Neut # (Auto) 4500 Lymph # (Auto) 2000 [place] # (Auto) 600 Eos # (Auto) 200 Baso # (Auto) 0 Sodium 137 Potassium 3.9 Chloride 109 H Carbon Dioxide 21 L BUN 28 H Creatinine 1.76 H Estimated GFR 29 L BUN/Creatinine Ratio 15.9 Glucose 121 H Calcium 8.1 L PFSH Medical History Cervical stenosis of spinal canal Depression with anxiety Diabetes Falls frequently Herniated nucleus pulposus with myelopathy, cervical Hyperlipidemia Hypertension Myopathy Stable angina Surgical History History of ankle surgery History of appendectomy History of back surgery History of hysterectomy Family History Father Diabetes mellitus Liver cancer Mother Diabetes mellitus COPD (chronic obstructive pulmonary disease) Asthma Family/Other Cancer Family/Other Heart problem Social History marital status: household members: spouse Smoking Status: Former smoker alcohol intake: current Discharge Plan Discharge Plan Patient Disposition: Home Provider Discharge Comment: You were admitted for bloody urine and found to have a bladder tumor which is causing an obstruction to your right kidney. You will need a procedure to drain this urine out called a nephrostomy tube, which will come out of your back and drain urine into a bag. Please follow-up with Dr. Pickard in clinic for biopsy results of the tumor and possible referral to oncology. I would also see Dr. Perez on Jul 02 for the time being to have a doctor following you. Discharge orders & Medications Prescriptions: New tramadol 50 mg Tablet 50 mg PO Q6H PRN (Reason: pain) Qty: 30 0RF Continued fluoxetine 40 mg capsule 40 mg PO DAILY isosorbide dinitrate 10 mg tablet 10 mg PO BID Label Comments: Take 1 tablet by mouth twice a day atorvastatin 20 mg tablet 20 mg PO DAILY amlodipine 2.5 mg tablet 2.5 mg PO DAILY levothyroxine 50 mcg tablet 50 mcg PO DAILY omeprazole 20 mg capsule,delayed release(DR/EC) 20 mg PO BID Label Comments: TAKE ONE CAPSULE BY MOUTH TWICE DAILY FOR INDIGESTION bupropion HCl 150 mg tablet extended release 24 hr 150 mg PO DAILY Label Comments: Take 1 tablet by mouth every morning fenofibrate 160 mg tablet 160 mg PO DAILY Label Comments: TAKE 1 TABLET BY MOUTH DAILY Discontinued ciprofloxacin HCl 250 mg tablet 250 mg PO Q12H 3 Days Qty: 6 0RF Rx Instructions: Start morning before procedure, continue day of and day after, until medi cation is gone. Follow up/Referrals: Yanet Ignacio ARNP [Primary Care Provider] - Discharge Data Primary Care Provider: Yanet Ignacio Quality VTE Deep Vein Thrombosis/Pulmonary Embolism Present on Admission: No
--- NOTE | 2022-05-25 16:14 | PC.NURSE ---
Patient is A&Ox3, VSS, afebrile on RA. Sweeney catheter in place draining dark colored urine, noted a couple of spots of blood and yellow urine in tubing. Urologist at bedside this a.m. reviewing plan with patient and follow up. Pt's at bedside supportive with many inusrance and pathology questions. Pt is cleared medically for discharge home this afternoon with follow up tomorrow at [facility] for outpatient procedure with nephrology to get nephrostomy tube. Patient is educated on leg bag, transferring to night time catheter bag. She is able to dress with minimal assistance and she and her verbalize understanding of discharge medications, activity, follow up care and s/sx of infection. She is escorted via w/ch to private vehicle with all of her belongings including her FWW at approximately 1400 for discharge home with her .
--- NOTE | 2022-07-06 11:17 | CM.DPC ---
LATE ENTRY: Received verbal referral from hospitalist/provider Dr. Paniagua to follow up with patient's spouse about outpatient follow up for this patient. [phone]. Patient in room at time of call and agreeable for CM team to discuss case with her spouse. Reviewed d/c summary and instructed spouse to follow up with Dr. Cha because he did procedure on 05-23-22. D/c summary states the same but no follow up appointment had been made. Spouse provided with name/number of office. JANINE Moreno
== END 2022-05-25 14:00 | disposition home or self-care (01) | DRG 669 ==
LOC: ED 14:58 → AC 18:10
PROVIDERS: Emergency Medicine; Specialist; Admitting Provider Student in an Organized Health Care Education/Training Program; Emergency Provider Nurse Practitioner Critical Care Medicine; Family Provider Orthopaedic Surgery; PCP Nurse Practitioner Family; Referring Provider Nurse Practitioner Critical Care Medicine; Visit Provider Student in an Organized Health Care Education/Training Program
PROC: 0TBB8ZX Excision of Bladder, Via Natural or Artificial Opening Endoscopic, Diagnostic (ICD-10-PCS; principal; 2022-05-23 16:30)
PROC: 0TBB8ZZ Excision of Bladder, Via Natural or Artificial Opening Endoscopic (ICD-10-PCS; 2022-05-23 16:30)
DX: C67.5 Malignant neoplasm of bladder neck (principal); E44.0 Moderate protein-calorie malnutrition; N13.30 Unspecified hydronephrosis; N30.01 Acute cystitis with hematuria; Z68.1 Body mass index [BMI] 19.9 or less, adult; R18.8 Other ascites; R79.1 Abnormal coagulation profile; I16.0 Hypertensive urgency; B96.89 Other specified bacterial agents as the cause of diseases classified elsewhere; K74.60 Unspecified cirrhosis of liver; F32.A Depression, unspecified; E78.5 Hyperlipidemia, unspecified; Z87.891 Personal history of nicotine dependence; Z20.822 Contact with and (suspected) exposure to COVID-19
CPT/HCPCS: 36415; 52224; 74176; 76000; 80048; 80053; 81003; 81015; 82550; 84145; 84484; 85025; 85610; 87077; 87086; 87635; 93005; 93010; 96365; 96367; 96375; 99233; 99284; C9803; J0690; J0696; J1885; J2704; J3010; J3430; J9280